=== PATIENT | female | born 1985 | race American Indian/Alaskan Native ===

== ENCOUNTER 2019-10-26 07:59 | Inpatient (IN) | payer MEDICAID ==
--- NOTE | 2019-10-26 08:39 | Emergency Department Report ---
ED General Adult HPI - General Chief complaint: Dyspnea/Respdistress Stated complaint: DALJIT Time Seen by Provider: 10/26/19 08:19 Source: patient Mode of arrival: Ambulatory Limitations: Other - History of Present Illness Initial comments: This is a 34-year-old female noncompliant with cold medicine. I am told that she was admitted to [facility] in July and ultimately signed out AMA. She has run out of her home oxygen. Her initial room air sat was 88 in the field I believe. She was placed on 2 L of supplemental O2. Her sats are ru nning between 91 and 96. She is here because she is been accumulating fluid progressively. She also complains of shortness of breath. She states that her legs have become very red and swollen and that the swelling has extended all the way to her chest but now has "gone down". Patient states she has a history of hypertension, CHF, diabetes. She does not monitor her sugar. She denies a history of chronic kidney disease. -: Gradual, week(s), month(s) Location: lower extremity (aching lower extremities) Radiation: non-radiation - Related Data Allergies Allergy/AdvReac Type Severity Reaction Status Date / Time No Known Allergies Allergy Unverified 10/26/19 08:25 ED Review of Systems ROS: Stated complaint: DALJIT Other details as noted in HPI Constitutional: fever (?). denies: chills Eyes: denies: eye pain, eye discharge, vision change ENT: denies: ear pain, throat pain Respiratory: shortness of breath. denies: cough, wheezing Cardiovascular: denies: chest pain, palpitations Endocrine: no symptoms reported Gastrointestinal: denies: abdominal pain, nausea, diarrhea Genitourinary: denies: urgency, dysuria, discharge Musculoskeletal: as per HPI, other (bilateral leg swelling and pain). denies: back pain, joint swelling, arthralgia Skin: denies: rash, lesions Neurological: denies: headache, weakness, paresthesias Psychiatric: denies: anxiety, depression Hematological/Lymphatic: denies: easy bleeding, easy bruising ED Past Medical Hx - Past Medical History Hx Congestive Heart Failure: Yes Hx Diabetes: Yes Additional medical history: CELLULITIS - Social History Smoking Status: Current Every Day Smoker Substance Use Type: Alcohol, Cocaine, Marijuana ED Physical Exam - General Limitations: Physical Limitation General appearance: alert, in no apparent distress, obese - Head Head exam: Present: atraumatic, normocephalic - Eye Eye exam: Present: normal appearance. Absent: scleral icterus - ENT ENT exam: Present: mucous membranes moist - Neck Neck exam: Present: normal inspection. Absent: tenderness, meningismus - Respiratory Respiratory exam: Present: normal lung sounds bilaterally. Absent: respiratory distress - Cardiovascular Cardiovascular Exam: Present: regular rate, normal rhythm. Absent: systolic murmur, diastolic murmur, rubs, gallop - GI/Abdominal GI/Abdominal exam: Present: soft, normal bowel sounds. Absent: distended, t enderness, guarding, rebound, rigid - Extremities Exam Extremities exam: Present: other (4+ bilateral leg edema extending onto the abdominal wall.) - Back Exam Back exam: Present: normal inspection - Neurological Exam Neurological exam: Present: alert, oriented X3, CN II-XII intact. Absent: motor sensory deficit - Psychiatric Psychiatric exam: Present: normal affect, normal mood - Skin Skin exam: Present: warm, dry, intact, other (erythema and warmth of both legs extending onto the abdomen.). Absent: rash ED Course Vital Signs 10/26/19 10/26/19 10/26/19 08:08 08:25 08:30 Temperature 98.1 F Pulse Rate 110 H 107 H Respiratory 24 24 Rate Blood Pressure 161/110 161/119 Blood Pressure [Right] O2 Sat by Pulse 69 L 91 Oximetry 10/26/19 10/26/19 10/26/19 08:47 08:51 09:01 Temperature Pulse Rate 106 H 106 H 99 H Respiratory 15 22 Rate Blood Pressure 161/119 181/132 Blood Pressure 161/119 [Right] O2 Sat by Pulse 95 85 Oximetry 10/26/19 10/26/19 10/26/19 10:07 10:09 10:21 Temperature Pulse Rate 96 H 97 H 93 H Respiratory 18 21 Rate Blood Pressure 202/134 165/119 Blood Pressure 202/134 [Right] O2 Sat by Pulse 93 Oximetry - Reevaluation(s) Reevaluation #1: Patient with sat of 91. Have ordered BiPAP. Have notified respiratory. They were unable to get a blood gas. Have ordered Lasix. Nurse informed. 10/26/19 09:36 Reevaluation #2: Blood pressure is increasing. Given additional labetalol. Will recheck the patient's status on BiPAP. Given a diuretic. Discussed with Dr. Fernando. Admit to her service IM. 10/26/19 09:58 Reevaluation #3: Finally obtain blood gas. Patient did well on BiPAP. Additional medicines given. 10/26/19 10:23 ED Medical Decision Making - Lab Data Result diagrams: 10/26/19 08:30 10/26/19 08:30 Laboratory Results - last 24 hr 10/26/19 10/26/19 10/26/19 08:30 08:30 08:30 WBC 7.1 RBC 5.30 H Hgb 14.1 Hct 44.5 H MCV 84 MCH 27 L MCHC 32 RDW 17.5 H Plt Count 224 Lymph % (Auto) 20.2 [place] % (Auto) 8.1 H Eos % (Auto) 0.4 Baso % (Auto) 0.8 Lymph # 1.4 [place] # 0.6 Eos # 0.0 Baso # 0.1 Seg Neutrophils % 70.5 H Seg Neutrophils # 5.0 PT 14.1 INR 1.08 APTT 30.8 Sodium 141 Potassium 4.7 Chloride 97.6 L Carbon Dioxide 26 Anion Gap 22 BUN 9 Creatinine 0.8 Estimated GFR > 60 BUN/Creatinine Ratio 11 Glucose 142 H POC Glucose Calcium 8.9 Magnesium 1.60 L Total Bilirubin 0.70 ALT 11 Alkaline Phosphatase 147 H Total Creatine Kinase CK-MB (CK-2) CK-MB (CK-2) Rel Index Troponin T NT-Pro-B Natriuret Pep Total Protein 7.1 Albumin 3.3 L Albumin/Globulin Ratio 0.9 10/26/19 10/26/19 08:30 08:46 WBC RBC Hgb Hct MCV MCH MCHC RDW Plt Count Lymph % (Auto) [place] % (Auto) Eos % (Auto) Baso % (Auto) Lymph # [place] # Eos # Baso # Seg Neutrophils % Seg Neutrophils # PT INR APTT Sodium Potassium Chloride Carbon Dioxide Anion Gap BUN Creatinine Estimated GFR BUN/Creatinine Ratio Glucose POC Glucose 129 H Calcium Magnesium Total Bilirubin ALT Alkaline Phosphatase Total Creatine Kinase 67 CK-MB (CK-2) 3.2 CK-MB (CK-2) Rel Index 4.7 H Troponin T < 0.010 NT-Pro-B Natriuret Pep 798.8 H Total Protein Albumin Albumin/Globulin Ratio Laboratory Results - last 24 hr 10/26/19 10/26/19 10/26/19 08:30 08:30 08:30 WBC 7.1 RBC 5.30 H Hgb 14.1 Hct 44.5 H MCV 84 MCH 27 L MCHC 32 RDW 17.5 H Plt Count 224 Lymph % (Auto) 20.2 [place] % (Auto) 8.1 H Eos % (Auto) 0.4 Baso % (Auto) 0.8 Lymph # 1.4 Thayer # 0.6 Eos # 0.0 Baso # 0.1 Seg Neutrophils % 70.5 H Seg Neutrophils # 5.0 PT 14.1 INR 1.08 APTT 30.8 Sodium 141 Potassium 4.7 Chloride 97.6 L Carbon Dioxide 26 Anion Gap 22 BUN 9 Creatinine 0.8 Estimated GFR > 60 BUN/Creatinine Ratio 11 Glucose 142 H POC Glucose Calcium 8.9 Magnesium 1.60 L Total Bilirubin 0.70 Direct Bilirubin 0.2 Indirect Bilirubin 0.5 AST 20 ALT 11 Alkaline Phosphatase 147 H Total Creatine Kinase CK-MB (CK-2) CK-MB (CK-2) Rel Index Troponin T NT-Pro-B Natriuret Pep Total Protein 7.1 Albumin 3.3 L Albumin/Globulin Ratio 0.9 10/26/19 10/26/19 08:30 08:46 WBC RBC Hgb Hct MCV MCH MCHC RDW Plt Count Lymph % (Auto) [place] % (Auto) Eos % (Auto) Baso % (Auto) Lymph # [place] # Eos # Baso # Seg Neutrophils % Seg Neutrophils # PT INR APTT Sodium Potassium Chloride Carbon Dioxide Anion Gap BUN Creatinine Estimated GFR BUN/Creatinine Ratio Glucose POC Glucose 129 H Calcium Magnesium Total Bilirubin Direct Bilirubin Indirect Bilirubin AST ALT Alkaline Phosphatase Total Creatine Kinase 67 CK-MB (CK-2) 3.2 CK-MB (CK-2) Rel Index 4.7 H Troponin T < 0.010 NT-Pro-B Natriuret Pep 798.8 H Total Protein Albumin Albumin/Globulin Ratio - EKG Data -: EKG Interpreted by Me EKG shows normal: sinus rhythm, axis, intervals, QRS complexes, ST-T waves Rate: normal - EKG Data Interpretation: no acute changes - Radiology Data Radiology results: image reviewed (consistent with CHF, pulmonary edema) Critical Care Time: Yes Critical care time in (mins) excluding proc time.: 80 Critical care attestation.: If time is entered above; I have spent that time in minutes in the direct care of this critically ill patient, excluding procedure time. ED Disposition Clinical Impression: Respiratory failure Qualifiers: Chronicity: acute Respiratory failure complication: hypoxia and hypercapnia Qualified Code(s): J96.01 - Acute respiratory failure with hypoxia; J96.02 - Acute respiratory failure with hypercapnia Pulmonary edema Qualifiers: Chronicity: acute Qualified Code(s): J81.0 - Acute pulmonary edema Congestive heart failure Qualifiers: Heart failure type: combined systolic and diastolic Heart failure chronicity: acute on chronic Qualified Code(s): I50.43 - Acute on chronic combined systolic (congestive) and diastolic (congestive) heart failure Cellulitis Qualifiers: Site of cellulitis: extremity Site of cellulitis of extremity: lower extremity Laterality: unspecified laterality Qualified Code(s): L03.119 - Cellulitis of unspecified part of limb Disposition: DC-09 OP ADMIT IP TO THIS HOSP Is pt being admited?: No Does the pt Need Aspirin: No Condition: Stable Instructions: Pulmonary Edema (ED) Time of Disposition: 10:31
[2019-10-26 08:58] LABS: Basophils # (Auto) 0.1 K/mm3 (0.0-0.1); Basophils % (Auto) 0.8 % (0.0-1.8); Eosinophils % (Auto) 0.4 % (0.0-4.3); Hematocrit 44.5 % (30.3-42.9); Hemoglobin 14.1 gm/dl (10.1-14.3); Lymphocytes # (Auto) 1.4 K/mm3 (1.2-5.4); Lymphocytes % (Auto) 20.2 % (13.4-35.0); Mean Corpuscular HGB Conc 32 % (30-34); Mean Corpuscular Volume 84 fl (79-97); Monocytes # (Auto) 0.6 K/mm3 (0.0-0.8); Monocytes % (Auto) 8.1 % (0.0-7.3); Platelet Count 224 K/mm3 (140-440); Red Cell Distribution Width 17.5 % (13.2-15.2)
[2019-10-26 09:08] LABS: INR 1.08 (0.87-1.13)
[2019-10-26 09:09] LABS: Partial Thromboplastin Time 30.8 Sec. (24.2-36.6)
[2019-10-26 09:19] LABS: Creatine Kinase MB 3.2 ng/mL (0.0-4.0)
[2019-10-26 09:20] LABS: Alanine Aminotransferase 11 units/L (7-56); Albumin 3.3 g/dL (3.9-5); BUN/Creatinine Ratio 11; Blood Urea Nitrogen 9 mg/dL (7-17); Calcium 8.9 mg/dL (8.4-10.2); Hemolysis Index 69
[2019-10-26 09:28] LABS: Bilirubin,Direct 0.2 mg/dL (0-0.2)
[2019-10-26] MEDS ORDERED: FUROSEMIDE 40 MG/4 ML INJ IV ONE (09:29)
--- NOTE | 2019-10-26 09:54 | Vascular Lab Report ---
DUPLEX DOPPLER BILATERAL LOWER EXTREMITY VEINS INDICATION: Shortness of Breath, R/O DVT FINDINGS: There is no thrombus within the deep veins of either lower extremity from the common femoral to the c correction veins. There is normal compression and augmentation on spectral analysis. IMPRESSION: No sonographic evidence for DVT in either lower extremity. Signer Name: Stephen Pena MD Signed: 10/26/2019 9:50 AM Workstation Name: [id number]
[2019-10-26] MEDS ORDERED: VANCOMYCIN PHARMACY TO DOSE IV SCH (10:00)
[2019-10-26] MEDS ORDERED: VANCOMYCIN 2,000 MG in SODIUM CHLORIDE 0.9% 500 ML 500 ML IV SCH (10:00)
--- NOTE | 2019-10-26 10:14 | XRay Report ---
CHEST 1 VIEW INDICATION: Dyspnea. COMPARISON: None FINDINGS: Support devices: None. Heart: Mild cardiomegaly. Lungs/Pleura: Mild pulmonary venous congestion. Trace pleural effusions could be present. No large pl eural effusion, consolidation or pneumothorax. Additional findings: None. IMPRESSION: Mild cardiomegaly and pulmonary venous congestion. Signer Name: Ari Ponce Jr, MD Signed: 10/26/2019 10:10 AM Workstation Name: [id number]
[2019-10-26 12:43] LABS: Bacteria,Urine 1+ /HPF (Negative); Bilirubin,Urine NEG (Negative); Blood,Urine SM (Negative); Color,Urine Colorless (Yellow); Protein,Urine <15 mg/dL mg/dL (Negative); Urobilinogen,Urine < 2.0 mg/dL (<2.0); WBC,Urine < 1.0 /HPF (0.0-6.0)
[2019-10-26 12:58] LABS: Amphetamine Screen,Urine PRESUMPTIVE NEGATIVE; Benzodiazepines Screen,Urine PRESUMPTIVE NEGATIVE; Cannabinoid Screen,Urine PRESUMPTIVE NEGATIVE; Methadone Screen,Urine PRESUMPTIVE NEGATIVE; Opiate Screen,Urine PRESUMPTIVE NEGATIVE
[2019-10-26 13:15] LABS: Cocaine Screen,Urine PRESUMPTIVE POSITIVE
[2019-10-26] MEDS ORDERED: ONDANSETRON 4 MG/2 ML INJ IV PRN (13:36)
[2019-10-26] MEDS ORDERED: ACETAMINOPHEN 325 MG TAB PO PRN (13:36)
--- NOTE | 2019-10-26 13:38 | History and Physical Report ---
History of Present Illness Date of examination: 10/26/19 Date of admission: 10/26/19 10:32 Chief complaint: SOB and LE redness and swelling History of present illness: This is a 34-year-old female with h/o CHF unknown EF, noncompliant with medicine, tobacco and cocaine abuse, on home o2 was admitted to [facility] in July and ultimately signed out AMA, RECENTLY run out of her home oxygen PRESENTED WITH WOESENING sob, B/L LE EDEMA AND REDNESS for last few day. She does endorse orthopnea, chest tightness. Her initial room air sat was 88 in the field PER REPORT. She was placed on 2 L of supplemental O2 AND BOUGHT TO THE ER. Her CXR showed pulmonary edema, and noted to have b/l LE cellulites. She is not on any meds now at home, cannot tell what was her EF. Her UDS was positive for cocaine and admits taking cocaine in last 24 hours as because she "was on pain." She was placed on empiric abx, obtained blood cx and called for admission for further stabilization and mx Review of Systems Constitutional: fever (?). denies: chills Eyes: denies: eye pain, eye discharge, vision change ENT: denies: ear pain, throat pain Respiratory: shortness of breath. denies: cough, wheezing Cardiovascular: denies: chest pain but admits chest tightness, -ve palpitations Endocrine: no symptoms reported Gastrointestinal: denies: abdominal pain, nausea, diarrhea Genitourinary: denies: urgency, dysuria, discharge Musculoskeletal: as per HPI, other (bilateral leg swelling and pain). denies: back pain, joint swelling, arthralgia Skin: denies: rash, lesions Neurological: denies: headache, weakness, paresthesias Psychiatric: denies: anxiety, depression Hematological/Lymphatic: denies: easy bleeding, easy bruising Past History Past Medical History: heart failure, hypertension, hyperlipidemia Past Surgical History: Other (tubal ligation) Social history: smoking, other (substance abuse) Family history: diabetes, hypertension Medications and Allergies Allergies Allergy/AdvReac Type Severity Reaction Status Date / Time No Known Allergies Allergy Unverified 10/26/19 08:25 Home Medications Medication Instructions Recorded Confirmed Last Taken Type No Known Home Medications [No 10/27/19 10/27/19 Unknown History Reported Home Medications] Active Meds: Active Medications Acetaminophen (Tylenol) 650 mg PO Q4H PRN PRN Reason: Pain MILD(1-3)/Fever >100.5/DODSON Acetaminophen/Hydrocodone Bitart ([place] 5/325) 2 each PO Q6H PRN PRN Reason: Pain, Moderate (4-6) Albuterol/Ipratropium (Duoneb *Not For Prn Use*) 1 ampul IH Q6HRT JOSE Docusate Sodium (Colace) 100 mg PO BID JOSE Hydralazine HCl (Apresoline) 5 mg IV Q30MIN PRN PRN Reason: Hypertension Vancomycin HCl 2,000 mg/ (Sodium Chloride) 540 mls @ 250 mls/hr IV Q12H JOSE Last Admin: 10/26/19 10:22 Dose: 250 mls/hr Documented by: Levofloxacin/Dextrose (Levaquin 750mg/150ml) 750 mg in 150 mls @ 100 mls/hr IV Q24HR JOSE; Protocol Ondansetron HCl (Zofran) 4 mg IV Q8H PRN PRN Reason: N/V unrelieved by Reglan Exam - Physical Exam Narrative exam: - General General appearance: alert, in no apparent distress, morbidly obese, lethargic - Head Head exam: Present: atraumatic, normocephalic - Eye Eye exam: Present: normal appearance. Absent: scleral icterus - ENT ENT exam: Present: mucous membranes moist - Neck Neck exam: Present: normal inspection. Absent: tenderness, meningismus - Respiratory Respiratory exam: Present: normal lung sounds bilaterally. Absent: respiratory distress - Cardiovascular Cardiovascular Exam: Present: regular rate, normal rhythm. Absent: systolic murmur, diastolic murmur, rubs, gallop - GI/Abdominal GI/Abdominal exam: Present: soft, normal bowel sounds. Absent: distended, tenderness, guarding, rebound, rigid - Extremities Exam Extremities exam: Present: other (4+ bilateral leg edema extending onto the abdominal wall.) - Back Exam Back exam: Present: normal inspection - Neurological Exam Neurological exam: Present: alert, oriented X3, CN II-XII intact. Absent: motor sensory deficit - Psychiatric Psychiatric exam: Present: normal affect, normal mood - Skin Skin exam: Present: warm, dry, intact, other (erythema and warmth of both legs extending onto the abdomen.). Absent: rash - Constitutional Vitals: Temp Pulse Resp BP Pulse Ox 98.1 F 93 H 21 165/119 93 10/26/19 08:25 10/26/19 10:21 10/26/19 10:21 10/26/19 10:21 10/26/19 10:21 Results - Labs CBC & Chem 7: 10/26/19 08:30 10/26/19 08:30 Labs: Abnormal lab results 10/26/19 10/26/19 10/26/19 Range/Units 08:30 08:30 08:30 RBC 5.30 H (3.65-5.03) M/mm3 Hct 44.5 H (30.3-42.9) % MCH 27 L (28-32) pg RDW 17.5 H (13.2-15.2) % [place] % (Auto) 8.1 H (0.0-7.3) % Seg Neutrophils % 70.5 H (40.0-70.0) % POC ABG pH (7.35-7.45) POC ABG pO2 (80-105) Chloride 97.6 L (98-107) mmol/L Glucose 142 H (65-100) mg/dL POC Glucose (70-105) Magnesium 1.60 L (1.7-2.3) mg/dL Alkaline Phosphatase 147 H (35-129) units/L CK-MB (CK-2) Rel Index 4.7 H (0-4) NT-Pro-B Natriuret Pep 798.8 H (0-450) pg/mL Albumin 3.3 L (3.9-5) g/dL 10/26/19 10/26/19 Range/Units 08:46 10:14 RBC (3.65-5.03) M/mm3 Hct (30.3-42.9) % MCH (28-32) pg RDW (13.2-15.2) % [place] % (Auto) (0.0-7.3) % Seg Neutrophils % (40.0-70.0) % POC ABG pH 7.280 L (7.35-7.45) POC ABG pO2 75 L (80-105) Chloride (98-107) mmol/L Glucose (65-100) mg/dL POC Glucose 129 H (70-105) Magnesium (1.7-2.3) mg/dL Alkaline Phosphatase (35-129) units/L CK-MB (CK-2) Rel Index (0-4) NT-Pro-B Natriuret Pep (0-450) pg/mL Albumin (3.9-5) g/dL Assessment and Plan Acute on chronic hypoxic respiratory failure Acute CHF exacerbation - likely systolic dysfunction - cont iv lasix, ins/os monitoring - get medical record from [facility] [place] B/L LE cellulitis - cont empiric abx, follow cx Hypomagnesemia, replete Cocaine abuse, counsellled for cessation Morbid obesity, wt reduction diet and exercise as tolerated as outpt tobacco abuse, counseled for cessation, nicotine patch if needed Possible sleep apnea, need sleep study outpt, CPAP at bedtime Dvt Px, lovenox Radiological data; CXR: pulmonary venous congestion LE venous doppler - no DVT
[2019-10-26] MEDS ORDERED: IPRATROPIUM/ALBUTEROL SULFATE 3 ML AMPUL.NEB IH ONE ×2 (13:54→20:05)
[2019-10-26] MEDS: IPRATROPIUM/ALBUTEROL SULFATE 3 ML AMPUL.NEB IH SCH ×2 (14:00→20:32)
[2019-10-26] MEDS ORDERED: FUROSEMIDE 40 MG/4 ML INJ ONE (17:50)
[2019-10-26] MEDS: FUROSEMIDE 40 MG/4 ML INJ IV SCH (18:37)
[2019-10-27] MEDS ORDERED: HYDROcodone/ACETAMINOPHEN 5-325 MG TAB ONE ×3 (01:29→10:28)
[2019-10-27] MEDS ORDERED: IPRATROPIUM/ALBUTEROL SULFATE 3 ML AMPUL.NEB IH ONE (03:18)
[2019-10-27] MEDS: IPRATROPIUM/ALBUTEROL SULFATE 3 ML AMPUL.NEB IH SCH ×5 (03:27→20:35)
[2019-10-27] MEDS ORDERED: FUROSEMIDE 40 MG/4 ML INJ ONE (08:15)
[2019-10-27] MEDS: FUROSEMIDE 40 MG/4 ML INJ IV SCH (08:16)
[2019-10-27] MEDS ORDERED: FUROSEMIDE 40 MG/4 ML INJ IV SCH (10:00)
[2019-10-27] MEDS ORDERED: MAGNESIUM SULFATE 2 GM/50 ML BAG IV ONE ×2 (10:00→10:21)
[2019-10-27] MEDS ORDERED: cefTRIAXone/NS 1 GM/50 ML 1 GM/50 ML BAG IV SCH (10:00)
[2019-10-27] MEDS ORDERED: DOCUSATE SODIUM 100 MG CAP ONE (10:21)
[2019-10-27] MEDS: HYDROcodone/ACETAMINOPHEN 5-325 MG TAB PO PRN ×2 (10:24→17:43)
[2019-10-27] MEDS: DOCUSATE SODIUM 100 MG CAP PO SCH ×2 (10:27→22:14)
[2019-10-27] MEDS: cefTRIAXone/NS 2 GM/100 ML 2 GM/100 ML BAG IV SCH (13:01)
--- NOTE | 2019-10-27 14:05 | Progress Note ---
Assessment and Plan Acute on chronic hypoxic respiratory failure Acute CHF exacerbation - likely systolic dysfunction - cont iv lasix, ins/os monitoring - get medical record from [facility] [place] - will order 2d echo and consult cardiology B/L LE cellulitis - cont empiric abx, follow cx Hypomagnesemia, repleted Cocaine abuse, counsellled for cessation Morbid obesity, wt reduction diet and exercise as tolerated as outpt tobacco abuse, counseled for cessation, nicotine patch if needed Possible sleep apnea, need sleep study outpt, CPAP at bedtime Dvt Px, lovenox Radiological data; CXR: pulmonary venous congestion LE venous doppler - no DVT Subjective Date of service: 10/27/19 Interval history: Patient seen and examined c/o SOB on exertion but improved than yesterday Swelling has come down but still has redness to her legs denies chest pain Objective - Exam Narrative Exam: - General General appearance: alert, in no apparent distress, morbidly obese, lethargic - Head Head exam: Present: atraumatic, normocephalic - Eye Eye exam: Present: normal appearance. Absent: scleral icterus - ENT ENT exam: Present: mucous membranes moist - Neck Neck exam: Present: normal inspection. Absent: tenderness, meningismus - Respiratory Respiratory exam: Present: normal lung sounds bilaterally. Absent: respiratory distress - Cardiovascular Cardiovascular Exam: Present: regular rate, normal rhythm. Absent: systolic murmur, diastolic murmur, rubs, gallop - GI/Abdominal GI/Abdominal exam: Present: soft, normal bowel sounds. Absent: distended, tenderness, guarding, rebound, rigid - Extremities Exam Extremities exam: Present: other (4+ bilateral leg edema extending onto the abdominal wall.) - Back Exam Back exam: Present: normal inspection - Neurological Exam Neurological exam: Present: alert, oriented X3, CN II-XII intact. Absent: motor sensory deficit - Psychiatric Psychiatric exam: Present: normal affect, normal mood - Skin Skin exam: Present: warm, dry, intact, other (erythema and warmth of both legs extending onto the abdomen.). Absent: rash - Constitutional Vitals: Vital Signs - 12hr 10/27/19 10/27/19 10/27/19 03:01 04:01 05:01 Temperature Pulse Rate Pulse Rate [ Posterior Bilateral Throughout] Respiratory Rate Respiratory Rate [Posterior Bilateral Throughout] Blood Pressure 162/102 162/102 162/102 Blood Pressure [Right] O2 Sat by Pulse 95 93 94 Oximetry 10/27/19 10/27/19 10/27/19 06:01 07:01 08:00 Temperature Pulse Rate 101 H Pulse Rate [ Posterior Bilateral Throughout] Respiratory 20 Rate Respiratory Rate [Posterior Bilateral Throughout] Blood Pressure 162/102 162/102 144/105 Blood Pressure [Right] O2 Sat by Pulse 79 L 93 Oximetry 10/27/19 10/27/19 10/27/19 08:52 09:01 10:01 Temperature Pulse Rate 114 H 106 H Pulse Rate [ 85 Posterior Bilateral Throughout] Respiratory 26 H 18 Rate Respiratory 20 Rate [Posterior Bilateral Throughout] Blood Pressure 144/105 144/105 Blood Pressure [Right] O2 Sat by Pulse 93 91 Oximetry 10/27/19 10/27/19 10/27/19 10:34 11:01 12:53 Temperature 98.3 F Pulse Rate 99 H 107 H 98 H Pulse Rate [ Posterior Bilateral Throughout] Respiratory 22 31 H 22 Rate Respiratory Rate [Posterior Bilateral Throughout] Blood Pressure 138/106 132/85 Blood Pressure 127/71 [Right] O2 Sat by Pulse 92 91 91 Oximetry - Labs CBC & Chem 7: 10/26/19 08:30 10/26/19 08:30
[2019-10-27] MEDS: diphenhydrAMINE 25 MG CAP PO PRN (18:29)
[2019-10-27] MEDS: VANCOMYCIN 2,000 MG in SODIUM CHLORIDE 0.9% 500 ML 500 ML IV SCH (18:30)
[2019-10-27] MEDS: ENOXAPARIN 40 MG/0.4 ML INJ SUB-Q SCH (22:10)
[2019-10-28] MEDS: IPRATROPIUM/ALBUTEROL SULFATE 3 ML AMPUL.NEB IH SCH ×4 (01:54→21:35)
[2019-10-28] MEDS: hydrALAZINE 20 MG/1 ML INJ IV PRN (05:16)
[2019-10-28] MEDS: FUROSEMIDE 40 MG/4 ML INJ IV SCH (05:16)
[2019-10-28] MEDS: VANCOMYCIN 2,000 MG in SODIUM CHLORIDE 0.9% 500 ML 500 ML IV SCH (06:11)
[2019-10-28] MEDS: HYDROcodone/ACETAMINOPHEN 5-325 MG TAB PO PRN ×3 (06:25→21:49)
--- NOTE | 2019-10-28 08:45 | Consultation ---
History of Present Illness Consult date: 10/28/19 Consult reason: congestive heart failure History of present illness: Impression Acute hypoxia Obesity hypoventilation syndrome CHF of uncertain etiology HTN Morbid Obesity Volume overload, multifactorial Plan IV diuresis, NTproBNP elevated Echo to evalaute EF CXR shows cardiomegaly, echo to further eval Past History Past Medical History: heart failure, hypertension Medications and Allergies Allergies Allergy/AdvReac Type Severity Reaction Status Date / Time No Known Allergies Allergy Unverified 10/26/19 08:25 Home Medications Medication Instructions Recorded Confirmed Last Taken Type No Known Home Medications [No 10/27/19 10/27/19 Unknown History Reported Home Medications] Active Meds: Active Medications Acetaminophen (Tylenol) 650 mg PO Q4H PRN PRN Reason: Pain MILD(1-3)/Fever >100.5/DODSON Acetaminophen/Hydrocodone Bitart ([place] 5/325) 2 each PO Q6H PRN PRN Reason: Pain, Moderate (4-6) Last Admin: 10/28/19 06:25 Dose: 2 each Documented by: Albuterol/Ipratropium (Duoneb *Not For Prn Use*) 1 ampul IH Q6HRT [facility] Last Admin: 10/28/19 08:13 Dose: 1 ampul Documented by: Diphenhydramine HCl (Benadryl) 25 mg PO Q6H PRN PRN Reason: Itching Last Admin: 10/27/19 18:29 Dose: 25 mg Documented by: Docusate Sodium (Colace) 100 mg PO BID [facility] Last Admin: 10/27/19 22:14 Dose: Not Given Documented by: Enoxaparin Sodium (Enoxaparin) 40 mg SUB-Q QDAY@2200 [facility] Last Admin: 10/27/19 22:10 Dose: 40 mg Documented by: Furosemide (Lasix) 40 mg IV DAILY@0600 [facility] Last Admin: 10/28/19 05:16 Dose: 40 mg Documented by: Hydralazine HCl (Apresoline) 5 mg IV Q30MIN PRN PRN Reason: HTN SYS>180 AND HRADY>100 Last Admin: 10/28/19 05:16 Dose: 5 mg Documented by: Hydroxyzine Pamoate (Vistaril) 50 mg PO Q6H PRN PRN Reason: Anxiety Ceftriaxone Sodium (Rocephin/Ns 2 Gm/100 Ml) 2 gm in 100 mls @ 200 mls/hr IV Q24HR [facility] Last Admin: 10/27/19 13:01 Dose: 200 mls/hr Documented by: Vancomycin HCl 2,000 mg/ (Sodium Chloride) 540 mls @ 250 mls/hr IV Q12H [facility] Last Admin: 10/28/19 06:11 Dose: Not Given Documented by: Ondansetron HCl (Zofran) 4 mg IV Q8H PRN PRN Reason: N/V unrelieved by Reglan Review of Systems All systems: negative (dyspnea, ortthopnea, pnd ,edema) Physical Examination Vital Signs Pulse Ox 69 L 10/26/19 08:08 General appearance: no acute distress Neck: Positive: neck supple Cardiac: Positive: Reg Rate and Rhythm, S1/S2 Lungs: Positive: Normal Exam Neuro: Positive: Grossly Intact Abdomen: Positive: Soft Results 10/26/19 08:30 10/26/19 08:30
[2019-10-28] MEDS: cefTRIAXone/NS 2 GM/100 ML 2 GM/100 ML BAG IV SCH (09:47)
[2019-10-28] MEDS: DOCUSATE SODIUM 100 MG CAP PO SCH ×2 (09:47→21:51)
[2019-10-28] MEDS ORDERED: FLU VACC QUAD 2019-20 (3 YR UP)/PF 60 MCG/0.5 ML SYRINGE IM ONE (12:00)
--- NOTE | 2019-10-28 16:03 | Progress Note ---
Assessment and Plan Acute on chronic hypoxic respiratory failure Acute CHF exacerbation - likely systolic dysfunction - cont iv lasix, ins/os monitoring - get medical record from [facility] [place] - not received yet - ordered 2d echo - pending - consulted cardiology B/L LE cellulitis - cont empiric abx, blood cx negative Hypomagnesemia, repleted Cocaine abuse, counsellled for cessation Morbid obesity, wt reduction diet and exercise as tolerated as outpt tobacco abuse, counseled for cessation, nicotine patch if needed Possible sleep apnea, need sleep study outpt, CPAP at bedtime Dvt Px, lovenox Radiological data; CXR: pulmonary venous congestion LE venous doppler - no DVT Subjective Date of service: 10/28/19 Interval history: Patient seen and examined c/o SOB on exertion but improved Swelling has come down but still has redness and edema to her legs denies chest pain Objective - Exam Narrative Exam: - General General appearance: alert, in no apparent distress, morbidly obese, lethargic - Head Head exam: Present: atraumatic, normocephalic - Eye Eye exam: Present: normal appearance. Absent: scleral icterus - ENT ENT exam: Present: mucous membranes moist - Neck Neck exam: Present: normal inspection. Absent: tenderness, meningismus - Respiratory Respiratory exam: Present: normal lung sounds bilaterally. Absent: respiratory distress - Cardiovascular Cardiovascular Exam: Present: regular rate, normal rhythm. Absent: systolic murmur, diastolic murmur, rubs, gallop - GI/Abdominal GI/Abdominal exam: Present: soft, normal bowel sounds. Absent: distended, te nderness, guarding, rebound, rigid - Extremities Exam Extremities exam: Present: other (2 + bilateral leg edema extending onto the abdominal wall.) - Back Exam Back exam: Present: normal inspection - Neurological Exam Neurological exam: Present: alert, oriented X3, CN II-XII intact. Absent: motor sensory deficit - Psychiatric Psychiatric exam: Present: normal affect, normal mood - Skin Skin exam: Present: warm, dry, intact, other (erythema and warmth of both legs extending onto the abdomen.). Absent: rash - Constitutional Vitals: Vital Signs - 12hr 10/28/19 10/28/19 10/28/19 04:25 08:13 08:33 Temperature 98.0 F 98.3 F Pulse Rate 107 H 104 H Pulse Rate [ 94 H Anterior Bilateral Throughout] Pulse Rate [ Apical] Respiratory 18 18 Rate Respiratory 20 Rate [Anterior Bilateral Throughout] Blood Pressure 182/100 103/60 O2 Sat by Pulse 89 92 93 Oximetry 10/28/19 10/28/19 10/28/19 10:00 10:13 13:21 Temperature Pulse Rate 109 H Pulse Rate [ 96 H Anterior Bilateral Throughout] Pulse Rate [ 109 H Apical] Respiratory 20 Rate Respiratory 20 Rate [Anterior Bilateral Throughout] Blood Pressure O2 Sat by Pulse 91 Oximetry - Labs CBC & Chem 7: 10/26/19 08:30 10/26/19 08:30
[2019-10-28] MEDS: diphenhydrAMINE 25 MG CAP PO PRN (17:57)
[2019-10-28] MEDS: ENOXAPARIN 40 MG/0.4 ML INJ SUB-Q SCH (21:51)
[2019-10-29] MEDS: IPRATROPIUM/ALBUTEROL SULFATE 3 ML AMPUL.NEB IH SCH ×4 (03:22→21:14)
[2019-10-29] MEDS: FUROSEMIDE 40 MG/4 ML INJ IV SCH (05:41)
[2019-10-29] MEDS: HYDROcodone/ACETAMINOPHEN 5-325 MG TAB PO PRN ×2 (05:44→21:30)
[2019-10-29] MEDS: cefTRIAXone/NS 2 GM/100 ML 2 GM/100 ML BAG IV SCH (10:57)
[2019-10-29] MEDS: DOCUSATE SODIUM 100 MG CAP PO SCH ×2 (10:57→21:26)
--- NOTE | 2019-10-29 14:58 | Progress Note ---
Assessment and Plan Acute on chronic hypoxic respiratory failure Acute CHF exacerbation - likely systolic dysfunction - cont iv lasix, ins/os monitoring - get medical record from [facility] [place] - not received yet - ordered 2d echo - pending - consulted cardiology B/L LE cellulitis - cont empiric abx, blood cx negative Hypomagnesemia, repleted Cocaine abuse, counsellled for cessation Morbid obesity, wt reduction diet and exercise as tolerated as outpt tobacco abuse, counseled for cessation, nicotine patch if needed Possible sleep apnea, need sleep study outpt, CPAP at bedtime Dvt Px, lovenox Radiological data; CXR: pulmonary venous congestion LE venous doppler - no DVT Subjective Date of service: 10/29/19 Interval history: Patient seen and examined c/o SOB on exertion but improved Swelling has come down but still has redness and edema to her legs denies chest pain Objective - Exam Narrative Exam: - General General appearance: alert, in no apparent distress, morbidly obese, lethargic - Head Head exam: Present: atraumatic, normocephalic - Eye Eye exam: Present: normal appearance. Absent: scleral icterus - ENT ENT exam: Present: mucous membranes moist - Neck Neck exam: Present: normal inspection. Absent: tenderness, meningismus - Respiratory Respiratory exam: Present: normal lung sounds bilaterally. Absent: respiratory distress - Cardiovascular Cardiovascular Exam: Present: regular rate, normal rhythm. Absent: systolic murmur, diastolic murmur, rubs, gallop - GI/Abdominal GI/Abdominal exam: Present: soft, normal bowel sounds. Absent: distended, te nderness, guarding, rebound, rigid - Extremities Exam Extremities exam: Present: other (2 + bilateral leg edema extending onto the abdominal wall.) - Back Exam Back exam: Present: normal inspection - Neurological Exam Neurological exam: Present: alert, oriented X3, CN II-XII intact. Absent: motor sensory deficit - Psychiatric Psychiatric exam: Present: normal affect, normal mood - Skin Skin exam: Present: warm, dry, intact, other (erythema and warmth of both legs extending onto the abdomen.). Absent: rash - Constitutional Vitals: Vital Signs - 12hr 10/29/19 10/29/19 10/29/19 03:23 04:07 04:11 Temperature 98.5 F 98.4 F Pulse Rate 109 H 79 Pulse Rate [ 93 H Anterior Bilateral Throughout] Pulse Rate [ 18 L Posterior Bilateral Throughout] Respiratory 18 18 Rate Respiratory 18 Rate [Anterior Bilateral Throughout] Respiratory Rate [Posterior Bilateral Throughout] Blood Pressure 154/92 119/80 O2 Sat by Pulse 67 L 99 Oximetry 10/29/19 10/29/19 10/29/19 05:44 08:00 08:52 Temperature Pulse Rate Pulse Rate [ 78 Anterior Bilateral Throughout] Pulse Rate [ Posterior Bilateral Throughout] Respiratory 22 Rate Respiratory 18 Rate [Anterior Bilateral Throughout] Respiratory Rate [Posterior Bilateral Throughout] Blood Pressure O2 Sat by Pulse 99 Oximetry 10/29/19 10/29/19 10/29/19 10:00 13:08 13:56 Temperature Pulse Rate 113 H Pulse Rate [ 115 H Anterior Bilateral Throughout] Pulse Rate [ 112 H Posterior Bilateral Throughout] Respiratory 20 Rate Respiratory 18 Rate [Anterior Bilateral Throughout] Respiratory 18 Rate [Posterior Bilateral Throughout] Blood Pressure O2 Sat by Pulse 96 Oximetry - Labs CBC & Chem 7: 10/26/19 08:30 10/30/19 07:44
[2019-10-29 16:59] LABS: BUN/Creatinine Ratio 10; Blood Urea Nitrogen 8 mg/dL (7-17); Calcium 8.7 mg/dL (8.4-10.2); Hemolysis Index 14
--- NOTE | 2019-10-29 18:39 | Progress Note ---
Subjective Date of service: 10/29/19 Interval history: Impression Acute hypoxia Obesity hypoventilation syndrome CHF , RV dysfunction HTN Morbid Obesity Volume overload, multifactorial Plan IV diuresis, NTproBNP elevated Echo shows preserved EF, RV dilated with dysfunction will need compliance with CPAP Needs evaluation for home 02, she has oxygen at home, needs updated Objective Vital Signs Temp Pulse Pulse Pulse Resp Resp Resp 10/29/19 13:56 115 H 112 H 18 18 10/29/19 13:08 20 10/29/19 10:00 113 H 10/29/19 09:03 91 H 10/29/19 08:52 10/29/19 08:00 78 18 10/29/19 05:44 22 10/29/19 04:11 98.4 F 79 18 10/29/19 04:07 98.5 F 109 H 18 10/29/19 03:23 93 H 18 L 18 10/29/19 02:02 20 10/29/19 00:17 98.2 F 100 H 18 10/28/19 21:49 20 10/28/19 21:44 18 10/28/19 21:38 10/28/19 21:37 102 H 98 H 20 18 10/28/19 20:28 102 H 10/28/19 19:29 98.1 F 109 H 18 BP Pulse Ox 10/29/19 13:56 10/29/19 13:08 96 10/29/19 10:00 10/29/19 09:03 157/87 92 10/29/19 08:52 99 10/29/19 08:00 10/29/19 05:44 10/29/19 04:11 119/80 99 10/29/19 04:07 154/92 67 L 10/29/19 03:23 10/29/19 02:02 10/29/19 00:17 158/103 93 10/28/19 21:49 10/28/19 21:44 165/101 10/28/19 21:38 95 10/28/19 21:37 10/28/19 20:28 10/28/19 19:29 155/110 85 - Physical Examination General: Appears Well, No Apparent Distress HEENT: Positive: PERRL, EOMI Neck: Positive: neck supple Cardiac: Positive: Reg Rate and Rhythm, S1/S2 Lungs: Positive: Normal Exam Neuro: Positive: Grossly Intact Abdomen: Positive: Soft - Labs and Meds Comprehensive Metabolic Panel 10/29/19 Range/Units 16:20 Sodium 138 (137-145) mmol/L Potassium 4.4 (3.6-5.0) mmol/L Chloride 91.3 L (98-107) mmol/L Carbon Dioxide 34 H D (22-30) mmol/L BUN 8 (7-17) mg/dL Creatinine 0.8 (0.7-1.2) mg/dL Glucose 205 H (65-100) mg/dL Calcium 8.7 (8.4-10.2) mg/dL
[2019-10-29] MEDS: ENOXAPARIN 40 MG/0.4 ML INJ SUB-Q SCH (21:30)
[2019-10-29] MEDS: hydrALAZINE 20 MG/1 ML INJ IV PRN (23:48)
[2019-10-30] MEDS: IPRATROPIUM/ALBUTEROL SULFATE 3 ML AMPUL.NEB IH SCH ×3 (02:29→14:53)
[2019-10-30] MEDS: HYDROcodone/ACETAMINOPHEN 5-325 MG TAB PO PRN (03:50)
[2019-10-30] MEDS: FUROSEMIDE 40 MG/4 ML INJ IV SCH (05:15)
[2019-10-30] MEDS ORDERED: cloNIDine 0.1 MG TAB PO ONE (06:05)
[2019-10-30 08:48] LABS: BUN/Creatinine Ratio 11; Blood Urea Nitrogen 8 mg/dL (7-17); Calcium 9.2 mg/dL (8.4-10.2); Hemolysis Index 0
--- NOTE | 2019-10-30 09:59 | Progress Note ---
Assessment and Plan Acute hypoxic respiratory failure Sleep apnea HTN Morbid Obesity Substance abuse Tobacco abuse An echocardiogram this admission reports dilated right heart chambers with moderate pulmonary HTN, RVSP 58 mmHg. Normal LV systolic function, EF 55-60%. Subjective Date of service: 10/30/19 Interval history: Patient reports her breathing is better. She denies chest pain. Objective Vital Signs Temp Pulse Pulse Pulse Resp Resp Resp 10/30/19 04:46 97.8 F 94 H 20 10/30/19 03:50 20 10/30/19 02:41 94 H 18 10/30/19 02:30 88 19 10/29/19 23:38 98.3 F 96 H 20 10/29/19 23:03 20 10/29/19 21:30 20 10/29/19 21:14 104 H 20 10/29/19 20:05 109 H 10/29/19 16:59 98.5 F 107 H 18 10/29/19 13:56 115 H 112 H 18 18 10/29/19 13:08 20 10/29/19 10:00 113 H BP BP Pulse Ox 10/30/19 04:46 150/118 90 10/30/19 03:50 10/30/19 02:41 10/30/19 02:30 10/29/19 23:38 158/108 94 10/29/19 23:03 96 10/29/19 21:30 10/29/19 21:14 93 10/29/19 20:05 10/29/19 16:59 159/85 85 10/29/19 13:56 10/29/19 13:08 96 10/29/19 10:00 - Physical Examination General: No Apparent Distress, Other (obese) HEENT: Positive: PERRL Neck: Positive: neck supple Cardiac: Positive: Reg Rate and Rhythm Lungs: Positive: Decreased Breath Sounds Neuro: Positive: Grossly Intact Abdomen: Positive: Soft - Labs and Meds Comprehensive Metabolic Panel 10/29/19 10/30/19 Range/Units 16:20 07:44 Sodium 138 141 (137-145) mmol/L Potassium 4.4 4.4 (3.6-5.0) mmol/L Chloride 91.3 L 90.3 L (98-107) mmol/L Carbon Dioxide 34 H D 35 H (22-30) mmol/L BUN 8 8 (7-17) mg/dL Creatinine 0.8 0.7 (0.7-1.2) mg/dL Glucose 205 H 176 H (65-100) mg/dL Calcium 8.7 9.2 (8.4-10.2) mg/dL
[2019-10-30] MEDS ORDERED: ASPIRIN 81 MG TAB CHEW PO SCH (10:00)
[2019-10-30] MEDS ORDERED: LISINOPRIL 5 MG TAB PO SCH (10:00)
[2019-10-30] MEDS ORDERED: carvediloL 6.25 MG TAB PO SCH (10:00)
[2019-10-30] MEDS: DOCUSATE SODIUM 100 MG CAP PO SCH (10:27)
[2019-10-30] MEDS: cefTRIAXone/NS 2 GM/100 ML 2 GM/100 ML BAG IV SCH (10:27)
[2019-10-30 14:20] VITALS: BP 151/118
--- NOTE | 2019-10-30 15:06 | Discharge Summary ---
Providers - Providers Date of Admission: 10/26/19 10:32 Date of discharge: 10/30/19 Attending physician: AMANDA GONZALEZ 10/27/19 16:55 Consult to Physician [CONS] Routine Comment: Consulting Provider: HELENE FRY Physician Instructions: Reason For Exam: CHF exacerbation Primary care physician: [employer] Hospitalization Condition: Stable Hospital course: Discharge diagnosis: Acute on chronic hypoxic respiratory failure Acute on chronic CHF exacerbation with preserved EF - likely diastolic dysfunction - acute on chronic - cont iv lasix, ins/os monitoring - get medical record from [facility] - not received yet - ordered 2d echo - pending - consulted cardiology B/L LE cellulitis - cont empiric abx, blood cx negative Hypomagnesemia, repleted Cocaine abuse, counsellled for cessation Morbid obesity, wt reduction diet and exercise as tolerated as outpt tobacco abuse, counseled for cessation, nicotine patch if needed Possible sleep apnea, need sleep study outpt, CPAP at bedtime Dvt Px, lovenox Radiological data; CXR: pulmonary venous congestion LE venous doppler - no DVT Disposition: TO HOME OR SELFCARE Time spent for discharge: 34 minutes Core Measure Documentation - Palliative Care Palliative Care/ Comfort Measures: Not Applicable - Core Measures Any of the following diagnoses?: history only Exam - Physical Exam Narrative exam: - General General appearance: alert, in no apparent distress, morbidly obese, lethargic - Head Head exam: Present: atraumatic, normocephalic - Eye Eye exam: Present: normal appearance. Absent: scleral icterus - ENT ENT exam: Present: mucous membranes moist - Neck Neck exam: Present: normal inspection. Absent: tenderness, meningismus - Respiratory Respiratory exam: Present: normal lung sounds bilaterally. Absent: respiratory distress - Cardiovascular Cardiovascular Exam: Present: regular rate, normal rhythm. Absent: systolic murmur, diastolic murmur, rubs, gallop - GI/Abdominal GI/Abdominal exam: Present: soft, normal bowel sounds. Absent: distended, tenderness, guarding, rebound, rigid - Extremities Exam Extremities exam: Present: other (2 + bilateral leg edema extending onto the abdominal wall.) - Back Exam Back exam: Present: normal inspection - Neurological Exam Neurological exam: Present: alert, oriented X3, CN II-XII intact. Absent: motor sensory deficit - Psychiatric Psychiatric exam: Present: normal affect, normal mood - Skin Skin exam: Present: warm, dry, intact, other (erythema and warmth of both legs extending onto the abdomen.). Absent: rash - Constitutional Vitals: Temp Pulse Resp BP Pulse Ox 97.8 F 87 20 151/118 90 10/30/19 04:46 10/30/19 12:42 10/30/19 08:00 10/30/19 12:42 10/30/19 12:42 Plan Activity: advance as tolerated Weight Bearing Status: Weight Bear as Tolerated Diet: low fat, low salt Special Instructions: record daily weights, home oxygen via (2 L n/c) Durable Medical Equipment Needed Upon Discharge: Bedside Commode Follow up with: PRIMARY MD GIANNI [Primary Care Provider] - 3-5 Days HELENE FRY MD [Staff Physician] - 7 Days Prescriptions: AtorvaSTATin [Lipitor] 20 mg PO QHS #30 tablet Aspirin [Aspirin BABY CHEW TAB] 81 mg PO QDAY #30 tab.chew carvediloL [Coreg] 6.25 mg PO BID #60 tablet Furosemide [Lasix TAB] 40 mg PO QDAY #30 tablet lisinopriL [Zestril TAB] 5 mg PO QDAY #30 tablet
== END 2019-10-30 19:05 | disposition home or self-care (01) | DRG 189 ==
LOC: ED 07:59 → IMCU 10:32 → 4A 10-27 10:00
PROVIDERS: ADMIT Internal Medicine; ATTEND Internal Medicine
PROC: 4A033R1 Measurement of Arterial Saturation, Peripheral, Percutaneous Approach (ICD-10-PCS; principal; 2019-10-26)
PROC: 5A09357 Assistance with Respiratory Ventilation, Less than 24 Consecutive Hours, Continuous Positive Airway Pressure (ICD-10-PCS; 2019-10-26)
DX: J96.21 Acute and chronic respiratory failure with hypoxia (principal); I11.0 Hypertensive heart disease with heart failure; J96.22 Acute and chronic respiratory failure with hypercapnia; L03.115 Cellulitis of right lower limb; L03.116 Cellulitis of left lower limb; Z91.14 Patient's other noncompliance with medication regimen; E11.9 Type 2 diabetes mellitus without complications; F17.200 Nicotine dependence, unspecified, uncomplicated; F12.90 Cannabis use, unspecified, uncomplicated; E83.42 Hypomagnesemia; I50.43 Acute on chronic combined systolic (congestive) and diastolic (congestive) heart failure; E66.2 Morbid (severe) obesity with alveolar hypoventilation; F14.10 Cocaine abuse, uncomplicated; Z83.3 Family history of diabetes mellitus; Z82.49 Family history of ischemic heart disease and other diseases of the circulatory system; Z98.51 Tubal ligation status; Z68.42 Body mass index [BMI] 45.0-49.9, adult; Z71.6 Tobacco abuse counseling; Z71.51 Drug abuse counseling and surveillance of drug abuser; Z71.3 Dietary counseling and surveillance; Z79.84 Long term (current) use of oral hypoglycemic drugs
CPT/HCPCS: 36415; 71045; 80048; 80076; 80307; 81001; 82140; 82550; 82553; 82803; 82962; 83735; 83880; 84484; 84703; 85025; 85610; 85730; 87040; 87086; 90686; 93005; 93010; 93306; 93970; 94640; 94760; 99292; G0378; J0360; J0696; J1650; J1940; J1956; J3370; J3475; J7040

== ENCOUNTER 2020-01-19 11:36 | Inpatient (IN) | payer MEDICAID, OTHER ==
--- NOTE | 2020-01-19 12:46 | XRay Report ---
CHEST 1 VIEW 01/19/2020 11:39 AM INDICATION / CLINICAL INFORMATION: Dyspnea. COMPARISON: Chest x-ray on 10/26/2019. FINDINGS: SUPPORT DEVICES: None. HEART / MEDIASTINUM: Stable mild cardiomegaly. LUNGS / PLEURA: No significant pulmonary or pleural abnormality. No pneumothorax. ADDITIONAL FINDINGS: No significant additional findings. IMPRESSION: 1. No acute findings. Stable mild cardiomegaly. Signer Name: Stephen Pena MD Signed: 01/19/2020 12:42 PM Workstation Name: [id number]
[2020-01-19 12:49] LABS: Basophils # (Auto) 0.1 K/mm3 (0.0-0.1); Basophils % (Auto) 0.6 % (0.0-1.8); Eosinophils % (Auto) 0.2 % (0.0-4.3); Lymphocytes # (Auto) 1.1 K/mm3 (1.2-5.4); Lymphocytes % (Auto) 13.4 % (13.4-35.0); Mean Corpuscular HGB Conc 30 % (30-34); Mean Corpuscular Volume 83 fl (79-97); Monocytes # (Auto) 1.2 K/mm3 (0.0-0.8); Monocytes % (Auto) 13.8 % (0.0-7.3); Platelet Count 197 K/mm3 (140-440); Red Blood Count 5.98 M/mm3 (3.65-5.03)
[2020-01-19 12:57] LABS: Alanine Aminotransferase 94 units/L (7-56); Albumin 3.5 g/dL (3.9-5); BUN/Creatinine Ratio 18; Blood Urea Nitrogen 21 mg/dL (7-17); Calcium 9.1 mg/dL (8.4-10.2); Hematocrit 49.4 % (30.3-42.9); Hemolysis Index 84; Red Cell Distribution Width 20.1 % (13.2-15.2)
--- NOTE | 2020-01-19 12:58 | Emergency Department Report ---
ED Shortness of Breath HPI - General Chief Complaint: Dyspnea/Respdistress Stated Complaint: SOB Time Seen by Provider: 01/19/20 11:43 Source: patient Mode of arrival: Wheelchair Limitations: No Limitations - History of Present Illness Initial Comments: 34-year-old female with a past medical history of CHF, plus sleep apnea, cocaine abuse, O2 dependence, and medication noncompliance presents to the hospital with complaints of shortness of breath and generalized body aches. No fever reported.. Complains of cough productive of yellow sputum and leg edema. Patient has been noncompliant with her 2 L home oxygen use since hospital discharge in October because her machine is malfunctioning. Patient also has been noncompliant with all her medications including metformin and Lasix for the last 2 weeks. She also continues to abuse cocaine with last use 1 week ago. sat 92% on 2 L o2 - Related Data Previous Rx's Medication Instructions Recorded Last Taken Type Aspirin [Aspirin BABY CHEW TAB] 81 mg PO QDAY #30 tab.chew 10/30/19 Unknown Rx AtorvaSTATin [Lipitor] 20 mg PO QHS #30 tablet 10/30/19 Unknown Rx Furosemide [Lasix TAB] 40 mg PO QDAY #30 tablet 10/30/19 Unknown Rx carvediloL [Coreg] 6.25 mg PO BID #60 tablet 10/30/19 Unknown Rx lisinopriL [Zestril TAB] 5 mg PO QDAY #30 tablet 10/30/19 Unknown Rx Allergies Allergy/AdvReac Type Severity Reaction Status Date / Time No Known Allergies Allergy Unverified 10/26/19 08:25 ED Review of Systems ROS: Stated complaint: SOB Other details as noted in HPI Comment: All other systems reviewed and negative ED Past Medical Hx - Past Medical History Previous Medical History?: Yes Hx Hypertension: Yes Hx Congestive Heart Failure: Yes Hx Diabetes: Yes Hx COPD: Yes Additional medical history: CELLULITIS - Social History Smoking Status: Current Some Day Smoker Substance Use Type: Alcohol, Cocaine, Marijuana - Medications Home Medications: Home Medications Medication Instructions Recorded Confirmed Last Taken Type Aspirin [Aspirin BABY CHEW TAB] 81 mg PO QDAY #30 tab.chew 10/30/19 Unknown Rx AtorvaSTATin [Lipitor] 20 mg PO QHS #30 tablet 10/30/19 Unknown Rx Furosemide [Lasix TAB] 40 mg PO QDAY #30 tablet 10/30/19 Unknown Rx carvediloL [Coreg] 6.25 mg PO BID #60 tablet 10/30/19 Unknown Rx lisinopriL [Zestril TAB] 5 mg PO QDAY #30 tablet 10/30/19 Unknown Rx ED Physical Exam - General Limitations: No Limitations - Other Other exam information: General: No acute distress Head: Atraumatic Eyes: normal appearance ENT: Moist mucous membranes Neck: Normal appearance, no midline tenderness Chest: Mild diminished breath sounds bilaterally without wheezing CV: Regular rate and rhythm Abdomen: Soft, normal bowel sounds, nontender, nondistended, no rebound or guarding Back: Normal inspection Extremity: Bilateral leg pitting edema with distal erythema Neuro: Alert O x 3, no facial asymmetry, speech clear, no gross motor sensory deficit Psych: Appropriate behavior Skin: No rash ED Course Vital Signs 01/19/20 01/19/20 01/19/20 11:48 11:50 11:56 Temperature 98.1 F Pulse Rate 111 H 109 H Respiratory 18 15 20 Rate Blood Pressure Blood Pressure 161/113 [Left] O2 Sat by Pulse 92 93 92 Oximetry 01/19/20 01/19/20 01/19/20 12:01 12:10 12:21 Temperature Pulse Rate 109 H 109 H 110 H Respiratory 20 22 22 Rate Blood Pressure 174/112 174/112 197/130 Blood Pressure [Left] O2 Sat by Pulse 88 87 88 Oximetry 01/19/20 01/19/20 01/19/20 12:31 12:41 14:40 Temperature Pulse Rate 113 H 109 H 106 H Respiratory 23 23 21 Rate Blood Pressure 174/112 174/112 156/114 Blood Pressure [Left] O2 Sat by Pulse 85 83 L 95 Oximetry ED Medical Decision Making - Lab Data Result diagrams: 01/19/20 12:09 01/19/20 12:09 Lab Results 01/19/20 01/19/20 01/19/20 Range/Units 12:09 12:09 12:09 WBC 8.5 (4.5-11.0) K/mm3 RBC 5.98 H (3.65-5.03) M/mm3 Hgb 15.0 H (10.1-14.3) gm/dl Hct 49.4 H (30.3-42.9) % MCV 83 (79-97) fl MCH 25 L (28-32) pg MCHC 30 (30-34) % RDW 20.1 H (13.2-15.2) % Plt Count 197 (140-440) K/mm3 Lymph % (Auto) 13.4 (13.4-35.0) % [place] % (Auto) 13.8 H (0.0-7.3) % Eos % (Auto) 0.2 (0.0-4.3) % Baso % (Auto) 0.6 (0.0-1.8) % Lymph # 1.1 L (1.2-5.4) K/mm3 [place] # 1.2 H (0.0-0.8) K/mm3 Eos # 0.0 (0.0-0.4) K/mm3 Baso # 0.1 (0.0-0.1) K/mm3 Seg Neutrophils % 72.0 H (40.0-70.0) % Seg Neutrophils # 6.1 (1.8-7.7) K/mm3 PT 15.1 H (12.2-14.9) Sec. INR 1.17 H (0.87-1.13) APTT 29.4 (24.2-36.6) Sec. D-Dimer 1393.48 H (0-234) ng/mlDDU ABG pH (7.350-7.450) pH Units ABG pCO2 mm Hg ABG pO2 (80.0-90.0) mm Hg ABG HCO3 (20.0-26.0) mmol/L ABG O2 Saturation (95.0-99.0) % ABG O2 Content (0.0-44) ABG Base Excess (-2.0-3.0) mmol/L ABG Hemoglobin (12.0-16.0) gm/dl ABG Carboxyhemoglobin (0.0-5.0) % ABG Methemoglobin (0.0-1.5) % Oxyhemoglobin (95.0-99.0) % FiO2 % Sodium 135 L (137-145) mmol/L Potassium 4.7 (3.6-5.0) mmol/L Chloride 89.9 L (98-107) mmol/L Carbon Dioxide 24 (22-30) mmol/L Anion Gap 26 mmol/L BUN 21 H (7-17) mg/dL Creatinine 1.2 (0.7-1.2) mg/dL Estimated GFR > 60 ml/min BUN/Creatinine Ratio 18 % Glucose 141 H (65-100) mg/dL POC Glucose (70-105) Calcium 9.1 (8.4-10.2) mg/dL Magnesium 1.70 (1.7-2.3) mg/dL Total Bilirubin 3.30 H (0.1-1.2) mg/dL AST 156 H (5-40) units/L ALT 94 H (7-56) units/L Alkaline Phosphatase 175 H (35-129) units/L Troponin T < 0.010 (0.00-0.029) ng/mL NT-Pro-B Natriuret Pep (0-450) pg/mL Total Protein 8.0 (6.3-8.2) g/dL Albumin 3.5 L (3.9-5) g/dL Albumin/Globulin Ratio 0.8 % HCG, Qual (Negative) 01/19/20 01/19/20 01/19/20 Range/Units 12:09 12:09 12:09 WBC (4.5-11.0) K/mm3 RBC (3.65-5.03) M/mm3 Hgb (10.1-14.3) gm/dl Hct (30.3-42.9) % MCV (79-97) fl MCH (28-32) pg MCHC (30-34) % RDW (13.2-15.2) % Plt Count (140-440) K/mm3 Lymph % (Auto) (13.4-35.0) % [place] % (Auto) (0.0-7.3) % Eos % (Auto) (0.0-4.3) % Baso % (Auto) (0.0-1.8) % Lymph # (1.2-5.4) K/mm3 [place] # (0.0-0.8) K/mm3 Eos # (0.0-0.4) K/mm3 Baso # (0.0-0.1) K/mm3 Seg Neutrophils % (40.0-70.0) % Seg Neutrophils # (1.8-7.7) K/mm3 PT (12.2-14.9) Sec. INR (0.87-1.13) APTT (24.2-36.6) Sec. D-Dimer (0-234) ng/mlDDU ABG pH (7.350-7.450) pH Units ABG pCO2 mm Hg ABG pO2 (80.0-90.0) mm Hg ABG HCO3 (20.0-26.0) mmol/L ABG O2 Saturation (95.0-99.0) % ABG O2 Content (0.0-44) ABG Base Excess (-2.0-3.0) mmol/L ABG Hemoglobin (12.0-16.0) gm/dl ABG Carboxyhemoglobin (0.0-5.0) % ABG Methemoglobin (0.0-1.5) % Oxyhemoglobin (95.0-99.0) % FiO2 % Sodium (137-145) mmol/L Potassium (3.6-5.0) mmol/L Chloride (98-107) mmol/L Carbon Dioxide (22-30) mmol/L Anion Gap mmol/L BUN (7-17) mg/dL Creatinine (0.7-1.2) mg/dL Estimated GFR ml/min BUN/Creatinine Ratio % Glucose (65-100) mg/dL POC Glucose 143 H (70-105) Calcium (8.4-10.2) mg/dL Magnesium (1.7-2.3) mg/dL Total Bilirubin (0.1-1.2) mg/dL AST (5-40) units/L ALT (7-56) units/L Alkaline Phosphatase (35-129) units/L Troponin T (0.00-0.029) ng/mL NT-Pro-B Natriuret Pep 1974 H (0-450) pg/mL Total Protein (6.3-8.2) g/dL Albumin (3.9-5) g/dL Albumin/Globulin Ratio % HCG, Qual Negative (Negative) 01/19/20 Range/Units 13:55 WBC (4.5-11.0) K/mm3 RBC (3.65-5.03) M/mm3 Hgb (10.1-14.3) gm/dl Hct (30.3-42.9) % MCV (79-97) fl MCH (28-32) pg MCHC (30-34) % RDW (13.2-15.2) % Plt Count (140-440) K/mm3 Lymph % (Auto) (13.4-35.0) % [place] % (Auto) (0.0-7.3) % Eos % (Auto) (0.0-4.3) % Baso % (Auto) (0.0-1.8) % Lymph # (1.2-5.4) K/mm3 [place] # (0.0-0.8) K/mm3 Eos # (0.0-0.4) K/mm3 Baso # (0.0-0.1) K/mm3 Seg Neutrophils % (40.0-70.0) % Seg Neutrophils # (1.8-7.7) K/mm3 PT (12.2-14.9) Sec. INR (0.87-1.13) APTT (24.2-36.6) Sec. D-Dimer (0-234) ng/mlDDU ABG pH 7.278 L (7.350-7.450) pH Units ABG pCO2 71.8 mm Hg ABG pO2 48.2 L (80.0-90.0) mm Hg ABG HCO3 32.9 H (20.0-26.0) mmol/L ABG O2 Saturation 80.5 L (95.0-99.0) % ABG O2 Content 15.2 (0.0-44) ABG Base Excess 3.6 H (-2.0-3.0) mmol/L ABG Hemoglobin 14.7 (12.0-16.0) gm/dl ABG Carboxyhemoglobin 8.1 H (0.0-5.0) % ABG Methemoglobin 0.8 (0.0-1.5) % Oxyhemoglobin 73.4 L (95.0-99.0) % FiO2 21 % Sodium (137-145) mmol/L Potassium (3.6-5.0) mmol/L Chloride (98-107) mmol/L Carbon Dioxide (22-30) mmol/L Anion Gap mmol/L BUN (7-17) mg/dL Creatinine (0.7-1.2) mg/dL Estimated GFR ml/min BUN/Creatinine Ratio % Glucose (65-100) mg/dL POC Glucose (70-105) Calcium (8.4-10.2) mg/dL Magnesium (1.7-2.3) mg/dL Total Bilirubin (0.1-1.2) mg/dL AST (5-40) units/L ALT (7-56) units/L Alkaline Phosphatase (35-129) units/L Troponin T (0.00-0.029) ng/mL NT-Pro-B Natriuret Pep (0-450) pg/mL Total Protein (6.3-8.2) g/dL Albumin (3.9-5) g/dL Albumin/Globulin Ratio % HCG, Qual (Negative) - EKG Data -: EKG Interpreted by Pr EKG shows normal: sinus rhythm, ST-T waves (no stemi) Rate: tachycardia (108) - Radiology Data Radiology results: report reviewed CHEST 1 VIEW 01/19/2020 11:39 AM INDICATION / CLINICAL INFORMATION: Dyspnea. CO MPARISON: Chest x-ray on 10/26/2019. FINDINGS: SUPPORT DEVICES: None. HEART / MEDIASTINUM: Stable mild cardiomegaly. LUNGS / PLEURA: No significant pulmonary or pleural abnormality. No pneumothorax. ADDITIONAL FINDINGS: No significant additional findings. IMPRESSION: 1. No acute findings. Stable mild cardiomegaly. CTA CHEST WITH CONTRAST INDICATION : MAIN: elevated ddimer, sob 100 ML OMNI 350 PT WEIGHED 375LBS. TECHNIQUE: Axial imaging performed through the chest, with contrast bolus timing set to maximize opacification of the pulmonary arteries. 3-plane MIP reformatted images were obtained. All CT scans at this location are performed using CT dose reduction for ALARA by means of automated exposure control. 100 mL of intravenous contrast administered. Consent was obtained prior to the administration of contrast. COMPARISON: A same-day chest x-ray FINDINGS: Bolus: Contrast bolus timing is adequate. PTE: No filling defect is present to suggest PTE. Mediastinum: The heart and pulmonary veins are enlarged. Normal aorta. No pathologic mediastinal adenopathy. Lungs: Lungs are clear. Upper abdomen: Limited imaging of the upper abdomen demonstrates enlargement of the hepatic veins. Bones: No suspicious bone lesions. IMPRESSION: 1. Negative for PTE. 2. Cardiomegaly and pulmonary venous hypertension. 3. No pneumonia. - Medical Decision Making Patient's ABG show significant hypoxia performed on room air. Patient has been noncompliant with her oxygen since November. Patient also has suspected sleep apnea. ABG also revealed CO2 retention with mild respiratory acidosis. Patient placed on BiPAP in the ED. CTA negative for pulmonary embolism, infiltrate, or pulmonary edema. Positive pulmonary hypertension noted. Suspect the patient has diastolic heart failure with lower extremity edema secondary to medication noncompliance. Patient also continues to abuse cocaine. Initial EKG without acute ischemia and troponin negative without any chest pain reported in the ED pt refusing to wear bipap in ed placed on nasal cannula o2 - Differential Diagnosis CHF, med noncompliance, MS, pneumonia Critical Care Time: No Critical care attestation.: If time is entered above; I have spent that time in minutes in the direct care of this critically ill patient, excluding procedure time. ED Disposition Clinical Impression: Respiratory acidosis, Leg edema, Pulmonary hypertension, Cocaine abuse, Noncompliance with medication regimen, HTN (hypertension), Obesity, Hypoxia, O2 dependent Disposition: -09 OP ADMIT IP TO THIS HOSP Is pt being admited?: Yes Condition: Stable Time of Disposition: 14:53
[2020-01-19 13:00] LABS: INR 1.17 (0.87-1.13)
[2020-01-19 13:01] LABS: Partial Thromboplastin Time 29.4 Sec. (24.2-36.6)
[2020-01-19 14:01] LABS: ABG Base Excess 3.6 mmol/L (-2.0-3.0); ABG HCO3 32.9 mmol/L (20.0-26.0); ABG Methemoglobin 0.8 % (0.0-1.5); ABG Oxygen Saturation 80.5 % (95.0-99.0); ABG PCO2 71.8 mm Hg; ABG PH 7.278 pH Units (7.350-7.450); ABG PO2 48.2 mm Hg (80.0-90.0)
--- NOTE | 2020-01-19 14:47 | Cat Scan Report ---
CTA CHEST WITH CONTRAST INDICATION : MAIN: elevated ddimer, sob 100 ML OMNI 350 PT WEIGHED 375LBS. TECHNIQUE: Axial imaging performed through the chest, with contrast bolus timing set to maximize opa cification of the pulmonary arteries. 3-plane MIP reformatted images were obtained. All CT scans at this location are performed using CT dose reduction for ALARA by means of automated exposure control. 100 mL of intravenous contrast administered. Consent was obtained prior to the administration of cont rast. COMPARISON: A same-day chest x-ray FINDINGS: Bolus: Contrast bolus timing is adequate. PTE: No filling defect is present to suggest PTE. Mediastinum: The heart and pulmonary veins are enlarged. Normal aorta. No pathologic mediastinal ad enopathy. Lungs: Lungs are clear. Upper abdomen: Limited imaging of the upper abdomen demonstrates enlargement of the hepatic veins. Bones: No suspicious bone lesions. IMPRESSION: 1. Negative for PTE. 2. Cardiomegaly and pulmonary venous hypertension. 3. No pneumonia. Signer Name: Rodney Cotter MD Signed: 01/19/2020 2:43 PM Workstation Name: [id number]
--- NOTE | 2020-01-19 15:03 | History and Physical Report ---
History of Present Illness Chief complaint: I need help with my breathing History of present illness: 34 YO Female with Cocaine Dependence, Nicotine Dependence, COPD noncompliant with home oxygen, DM, Pulmonary Hypertension, Medication Noncompliance presents to ED for evaluation. Patient states that she has experienced shortness of breath over the past 1 week with persistent symptoms over the same timeframe. Patient reports cough productive of yellow sputum as well as worsening lower extremity edema. Patient also acknowledges noncompliance with home oxygen, noncompliant with medication, dietary noncompliance, as well as noncompliance with outpatient follow-up. Patient transported to [facility] via private vehicle for further evaluation and care. Patient seen and evaluated in the emergency department and found to have acute on chronic hypoxemic respiratory failure with a pulse oximetry of 76% on room air suspected secondary to noncompliance with outpatient supplemental oxygen and continued nicotine and cocaine ingestion. Patient also found to have pulmonary hypertension, accelerated hypertension, elevated liver function tests. Patient initially placed on supplemental oxygen without significant improvement in pulse oximetry. Patient subsequently placed on noninvasive positive pressure ventilation with mild improvement in pulse oximetry. Patient admitted to [facility] due to high risk for pulmonary deco mpensation. Patient denies fever, chills, chest pain, palpitations, prolonged travel/immobility, individual/family history of DVT/PE/bleeding/blood clotting disorders, known ill contacts. Prior admission on 10/26/2019 reviewed. All medication listed at time of admission has been reconciled. Advanced care planning conducted in the emergency department. Past History Past Medical History: COPD, hypertension, other (See HPI) Past Surgical History: No surgical history, Other (Reviewed) Social history: single, smoking Family history: diabetes, hypertension Medications and Allergies Allergies Allergy/AdvReac Type Severity Reaction Status Date / Time No Known Allergies Allergy Unverified 10/26/19 08:25 Home Medications Medication Instructions Recorded Confirmed Last Taken Type Aspirin [Aspirin BABY CHEW TAB] 81 mg PO QDAY #30 tab.chew 10/30/19 Unknown Rx AtorvaSTATin [Lipitor] 20 mg PO QHS #30 tablet 10/30/19 Unknown Rx Furosemide [Lasix TAB] 40 mg PO QDAY #30 tablet 10/30/19 Unknown Rx carvediloL [Coreg] 6.25 mg PO BID #60 tablet 10/30/19 Unknown Rx lisinopriL [Zestril TAB] 5 mg PO QDAY #30 tablet 10/30/19 Unknown Rx Review of Systems Constitutional: no weight loss, no weight gain, no fever, no chills Ears, nose, mouth and throat: no ear pain, no ear discharge, no tinnitis, no decreased hearing, no nose pain Breasts: no change in shape, no swelling, no mass Cardiovascular: no chest pain, no orthopnea, no palpitations Respiratory: shortness of breath, no congestion, no pleurisy, no pain, no pain on inspiration Gastrointestinal: no abdominal pain, no nausea, no vomiting, no diarrhea, no constipation Genitourinary Female: no pelvic pain, no flank pain, no menorrhagia, no dysuria, no urinary frequency, no urgency Rectal: no pain, no incontinence, no bleeding Musculoskeletal: no neck stiffness, no neck pain, no shooting arm pain, no arm numbness/tingling, no low back pain, no shooting leg pain Integumentary: no rash, no pruritis, no redness, no sores, no wounds Neurological: no transient paralysis, no paralysis, no weakness, no parathesias, no numbness, no tingling, no seizures Psychiatric: no anxiety, no change in sleep habits, no sleep disturbances, no hypersomnia, no change in appetite, no change in libido, no suicidal ideation Endocrine: no cold intolerance, no heat intolerance, no polyphagia, no excessive thirst, no polydipsia, no polyuria, no excessive sweating Hematologic/Lymphatic: no easy bruising, no easy bleeding, no lymphadenopathy, no lymphedema Allergic/Immunologic: no urticaria, no allergic rhinitis, no persistent infections, no anaphylaxis Exam - Constitutional Vitals: Temp Pulse Resp BP Pulse Ox 98.1 F 106 H 21 156/114 95 01/19/20 11:50 01/19/20 14:40 01/19/20 14:40 01/19/20 14:40 01/19/20 14:40 General appearance: Present: mild distress, obese - EENT Eyes: Present: PERRL ENT: hearing intact, clear oral mucosa, poor dentition - Neck Neck: Present: supple, normal ROM - Respiratory Respiratory effort: labored, pursed lips, accessory muscle use, stridor Respiratory: bilateral: diminished, rhonchi - Cardiovascular Heart Sounds: Present: S1 & S2. Absent: rub, click - Extremities Extremities: pulses symmetrical, No edema Peripheral Pulses: within normal limits - Abdominal General gastrointestinal: Present: soft, non-tender, non-distended, normal bowel sounds Female genitourinary: Present: normal - Integumentary Integumentary: Present: clear, warm, dry - Musculoskeletal Musculoskeletal: generalized weakness - Psychiatric Psychiatric: appropriate mood/affect, intact judgment & insight - Neurologic Neurologic: CNII-XII intact, moves all extremities, no gait normal Results - Labs CBC & Chem 7: 01/19/20 12:09 01/19/20 12:09 Labs: Abnormal lab results 01/19/20 01/19/20 01/19/20 Range/Units 12:09 12:09 12:09 RBC 5.98 H (3.65-5.03) M/mm3 Hgb 15.0 H (10.1-14.3) gm/dl Hct 49.4 H (30.3-42.9) % MCH 25 L (28-32) pg RDW 20.1 H (13.2-15.2) % [place] % (Auto) 13.8 H (0.0-7.3) % Lymph # 1.1 L (1.2-5.4) K/mm3 [place] # 1.2 H (0.0-0.8) K/mm3 Seg Neutrophils % 72.0 H (40.0-70.0) % PT 15.1 H (12.2-14.9) Sec. INR 1.17 H (0.87-1.13) D-Dimer 1393.48 H (0-234) ng/mlDDU ABG pH (7.350-7.450) pH Units ABG pO2 (80.0-90.0) mm Hg ABG HCO3 (20.0-26.0) mmol/L ABG O2 Saturation (95.0-99.0) % ABG Base Excess (-2.0-3.0) mmol/L ABG Carboxyhemoglobin (0.0-5.0) % Oxyhemoglobin (95.0-99.0) % Sodium 135 L (137-145) mmol/L Chloride 89.9 L (98-107) mmol/L BUN 21 H (7-17) mg/dL Glucose 141 H (65-100) mg/dL POC Glucose (70-105) Total Bilirubin 3.30 H (0.1-1.2) mg/dL AST 156 H (5-40) units/L ALT 94 H (7-56) units/L Alkaline Phosphatase 175 H (35-129) units/L NT-Pro-B Natriuret Pep (0-450) pg/mL Albumin 3.5 L (3.9-5) g/dL 01/19/20 01/19/20 01/19/20 Range/Units 12:09 12:09 13:55 RBC (3.65-5.03) M/mm3 Hgb (10.1-14.3) gm/dl Hct (30.3-42.9) % MCH (28-32) pg RDW (13.2-15.2) % [place] % (Auto) (0.0-7.3) % Lymph # (1.2-5.4) K/mm3 [place] # (0.0-0.8) K/mm3 Seg Neutrophils % (40.0-70.0) % PT (12.2-14.9) Sec. INR (0.87-1.13) D-Dimer (0-234) ng/mlDDU ABG pH 7.278 L (7.350-7.450) pH Units ABG pO2 48.2 L (80.0-90.0) mm Hg ABG HCO3 32.9 H (20.0-26.0) mmol/L ABG O2 Saturation 80.5 L (95.0-99.0) % ABG Base Excess 3.6 H (-2.0-3.0) mmol/L ABG Carboxyhemoglobin 8.1 H (0.0-5.0) % Oxyhemoglobin 73.4 L (95.0-99.0) % Sodium (137-145) mmol/L Chloride (98-107) mmol/L BUN (7-17) mg/dL Glucose (65-100) mg/dL POC Glucose 143 H (70-105) Total Bilirubin (0.1-1.2) mg/dL AST (5-40) units/L ALT (7-56) units/L Alkaline Phosphatase (35-129) units/L NT-Pro-B Natriuret Pep 1974 H (0-450) pg/mL Albumin (3.9-5) g/dL Assessment and Plan - Patient Problems (1) Respiratory failure Current Visit: No Status: Acute Qualifiers: Chronicity: acute Respiratory failure complication: hypoxia and hypercapnia Qualified Code(s): J96.01 - Acute respiratory failure with hypoxia; J96.02 - Acute respiratory failure with hypercapnia Plan to address problem: Supplemental oxygen, nebulizer therapy, chest x-ray, pulse oximetry, noninvasive positive pressure ventilation, pulmonary toilet. (2) Accelerated hypertension Current Visit: Yes Status: Acute Plan to address problem: Monitor blood pressure every shift, continue medical management, supportive care. Continue prehospital antihypertensive therapy. (3) Obesity hypoventilation syndrome Current Visit: Yes Status: Acute Plan to address problem: Supplemental oxygen, nebulizer therapy, pulse oximetry, outpatient sleep study to evaluate for sleep apnea, outpatient bariatric surgery follow-up. Balanced diet, increase physical activity at discharge. (4) Cocaine abuse Current Visit: Yes Status: Acute Plan to address problem: Behavior change counseling, +15 minutes. (5) Noncompliance with medication regimen Current Visit: Yes Status: Acute Plan to address problem: Behavior change counseling, +15 minutes, patient knowledges understanding of risk of worsening disease and premature if she continues with medication and dietary as well as outpatient medical follow-up noncompliance, as well as supplemental oxygen compliance. (6) Pulmonary hypertension Current Visit: Yes Status: Acute Plan to address problem: Supportive care, supplemental oxygen, patient counseled regarding noncompliance with submental oxygen. (7) DVT prophylaxis Current Visit: Yes Status: Acute Plan to address problem: SCD to bilateral lower extremities while in bed, patient is ambulatory. (8) Advance care planning Current Visit: Yes Status: Acute Plan to address problem: Patient is full code, patient found to have poor prognosis. Patient counseled regarding polysubstance abuse, and noncompliance with supplemental oxygen, noncompliance with medication and noncompliance with outpatient follow-up with medical care. Patient informed that continued behavior will result in worsening disease and eventual premature . Patient knowledges understanding instructions. Patient reports that she will try to be more compliant in the future. +30 minutes.
[2020-01-19] MEDS ORDERED: methylPREDNISolone Sod Succinate 40 MG/1 ML INJ ONE ×2 (15:46→22:37)
[2020-01-19] MEDS: methylPREDNISolone Sod Succinate 40 MG/1 ML INJ IV SCH ×2 (15:49→22:36)
[2020-01-19] MEDS ORDERED: hydrALAZINE 20 MG/1 ML INJ IV PRN (18:55)
[2020-01-19] MEDS ORDERED: LISINOPRIL 5 MG TAB PO SCH (18:55)
[2020-01-19] MEDS ORDERED: hydrALAZINE 20 MG/1 ML INJ ONE (21:48)
[2020-01-19] MEDS ORDERED: ACETAMINOPHEN 325 MG TAB PO ONE (22:49)
[2020-01-19] MEDS ORDERED: ACETAMINOPHEN 325 MG TAB ONE (22:52)
[2020-01-19] MEDS ORDERED: hydrALAZINE 20 MG/1 ML INJ IV ONE (23:47)
[2020-01-20 01:17] LABS: Hepatitis B Surface Antigen Non-Reactive (Negative); Hepatitis C Virus Antibody Non-Reactive (NonReactive)
[2020-01-20] MEDS: hydrALAZINE 20 MG/1 ML INJ IV PRN ×4 (04:37→21:07)
[2020-01-20 05:48] LABS: Mean Corpuscular HGB Conc 30 % (30-34); Mean Corpuscular Volume 83 fl (79-97); Platelet Count 191 K/mm3 (140-440); Red Blood Count 5.87 M/mm3 (3.65-5.03)
[2020-01-20 05:49] LABS: Hematocrit 48.9 % (30.3-42.9); Hemoglobin 14.8 gm/dl (10.1-14.3); Red Cell Distribution Width 20.5 % (13.2-15.2)
[2020-01-20 06:11] LABS: Alanine Aminotransferase 87 units/L (7-56); Albumin 3.5 g/dL (3.9-5); BUN/Creatinine Ratio 22; Blood Urea Nitrogen 22 mg/dL (7-17); Calcium 9.4 mg/dL (8.4-10.2); Hemolysis Index 2
[2020-01-20 06:54] LABS: Anisocytosis 1+; Band Neutrophils # (Manual) 0.1 K/mm3; Basophils % (Manual) 0 % (0.0-1.8); Eosinophils % (Manual) 0 % (0.0-4.3); Hypochromasia 1+; Monocytes % (Manual) 0 % (0.0-7.3); Total Cells Counted 100
[2020-01-20 06:55] LABS: Platelet Estimate Consistent w Auto
[2020-01-20] MEDS ORDERED: LISINOPRIL 5 MG TAB PO SCH (10:00)
--- NOTE | 2020-01-20 13:56 | Progress Note ---
Assessment and Plan (1) Respiratory failure Current Visit: No Status: Acute Qualifiers: Chronicity: acute Respiratory failure complication: hypoxia and hypercapnia Qualified Code(s): J96.01 - Acute respiratory failure with hypoxia; J96.02 - Acute respiratory failure with hypercapnia Plan to address problem: Supplemental oxygen, nebulizer therapy, chest x-ray, pulse oximetry, noninvasive positive pressure ventilation, pulmonary toilet. (2) Accelerated hypertension Current Visit: Yes Status: Acute Plan to address problem: Monitor blood pressure every shift, continue medical management, supportive care. Continue prehospital antihypertensive therapy. (3) Obesity hypoventilation syndrome Current Visit: Yes Status: Acute Plan to address problem: Supplemental oxygen, nebulizer therapy, pulse oximetry, outpatient sleep study to evaluate for sleep apnea, outpatient bariatric surgery follow-up. Balanced diet, increase physical activity at discharge. (4) Cocaine abuse Current Visit: Yes Status: Acute Plan to address problem: Behavior change counseling, +15 minutes. (5) Noncompliance with medication regimen Current Visit: Yes Status: Acute Plan to address problem: Behavior change counseling, +15 minutes, patient knowledges understanding of risk of worsening disease and premature if she continues with medication and dietary as well as outpatient medical follow-up noncompliance, as well as supplemental oxygen compliance. (6) Pulmonary hypertension Current Visit: Yes Status: Acute Plan to address problem: Supportive care, supplemental oxygen, patient counseled regarding noncompliance with submental oxygen. (7) DVT prophylaxis Current Visit: Yes Status: Acute Plan to address problem: SCD to bilateral lower extremities while in bed, patient is ambulatory. (8) Advance care planning Current Visit: Yes Status: Acute Plan to address problem: Patient is full code, patient found to have poor prognosis. Patient counseled regarding polysubstance abuse, and noncompliance with supplemental oxygen, noncompliance with medication and noncompliance with outpatient follow-up with medical care. Patient informed that continued behavior will result in worsening disease and eventual premature . Patient knowledges understanding instructions. Patient reports that she will try to be more compliant in the future. +30 minutes. Subjective Date of service: 01/20/20 Objective - Constitutional Vitals: Vital Signs - 12hr 01/20/20 01/20/20 01/20/20 02:00 02:11 02:21 Temperature Pulse Rate 121 H 117 H 115 H Pulse Rate [ From Monitor] Respiratory 22 21 21 Rate Blood Pressure 198/117 198/117 186/121 O2 Sat by Pulse 94 87 88 Oximetry 01/20/20 01/20/20 01/20/20 02:30 02:41 02:51 Temperature Pulse Rate 119 H 117 H 121 H Pulse Rate [ From Monitor] Respiratory 22 23 29 H Rate Blood Pressure 179/113 179/113 198/117 O2 Sat by Pulse 89 89 88 Oximetry 01/20/20 01/20/20 01/20/20 03:00 03:11 03:21 Temperature Pulse Rate 115 H 118 H 115 H Pulse Rate [ From Monitor] Respiratory 20 21 23 Rate Blood Pressure 193/118 193/118 193/118 O2 Sat by Pulse 86 92 93 Oximetry 01/20/20 01/20/20 01/20/20 03:30 03:41 03:51 Temperature Pulse Rate 115 H 116 H 116 H Pulse Rate [ From Monitor] Respiratory 26 H 17 20 Rate Blood Pressure 194/122 194/122 194/122 O2 Sat by Pulse 93 95 93 Oximetry 01/20/20 01/20/20 01/20/20 04:00 04:11 04:21 Temperature Pulse Rate 115 H 119 H 114 H Pulse Rate [ 116 H From Monitor] Respiratory 21 21 21 Rate Blood Pressure 179/109 179/109 194/122 O2 Sat by Pulse 94 96 91 Oximetry 01/20/20 01/20/20 01/20/20 04:30 04:37 04:40 Temperature 97.4 F L Pulse Rate 114 H 113 H 115 H Pulse Rate [ From Monitor] Respiratory 17 19 Rate Blood Pressure 202/119 202/119 202/119 O2 Sat by Pulse 94 94 Oximetry 01/20/20 01/20/20 01/20/20 04:50 05:00 05:10 Temperature Pulse Rate 116 H 118 H 110 H Pulse Rate [ From Monitor] Respiratory 18 18 22 Rate Blood Pressure 170/114 170/114 O2 Sat by Pulse 89 87 78 L Oximetry 01/20/20 01/20/20 01/20/20 05:20 05:30 05:40 Temperature Pulse Rate 116 H 119 H 100 H Pulse Rate [ From Monitor] Respiratory 11 L 17 26 H Rate Blood Pressure 170/114 177/118 177/118 O2 Sat by Pulse 87 91 84 Oximetry 01/20/20 01/20/20 01/20/20 05:50 06:00 06:10 Temperature Pulse Rate 119 H 108 H 112 H Pulse Rate [ From Monitor] Respiratory 17 13 20 Rate Blood Pressure 177/118 193/111 193/111 O2 Sat by Pulse 75 L 92 93 Oximetry 01/20/20 01/20/20 01/20/20 06:20 06:30 06:40 Temperature Pulse Rate 116 H 116 H 114 H Pulse Rate [ From Monitor] Respiratory 20 26 H 21 Rate Blood Pressure 193/111 195/113 177/118 O2 Sat by Pulse 94 93 93 Oximetry 01/20/20 01/20/20 01/20/20 06:50 07:00 07:10 Temperature Pulse Rate 116 H 115 H 115 H Pulse Rate [ From Monitor] Respiratory 20 21 15 Rate Blood Pressure 177/118 186/107 211/114 O2 Sat by Pulse 93 93 89 Oximetry 01/20/20 01/20/20 01/20/20 07:20 07:30 07:40 Temperature Pulse Rate 108 H 117 H 117 H Pulse Rate [ From Monitor] Respiratory 20 20 23 Rate Blood Pressure 211/114 187/108 187/108 O2 Sat by Pulse 91 92 94 Oximetry 01/20/20 01/20/20 01/20/20 07:50 08:00 08:10 Temperature 97.9 F Pulse Rate 118 H 112 H 114 H Pulse Rate [ From Monitor] Respiratory 20 17 24 Rate Blood Pressure 187/108 178/113 178/113 O2 Sat by Pulse 94 96 92 Oximetry 01/20/20 01/20/20 01/20/20 08:20 11:01 12:00 Temperature 97.7 F Pulse Rate 111 H 110 H Pulse Rate [ From Monitor] Respiratory 19 Rate Blood Pressure 178/113 188/119 O2 Sat by Pulse 94 Oximetry 01/20/20 12:53 Temperature Pulse Rate 110 H Pulse Rate [ From Monitor] Respiratory 23 Rate Blood Pressure O2 Sat by Pulse 95 Oximetry General appearance: Present: no acute distress, well-nourished - EENT Eyes: PERRL, EOM intact ENT: hearing intact, clear oral mucosa Ears: bilateral: normal - Neck Neck: supple, normal ROM - Respiratory Respiratory effort: normal Respiratory: bilateral: CTA - Breasts Breasts: normal - Cardiovascular Rhythm: regular Heart Sounds: Present: S1 & S2. Absent: gallop, rub Extremities: pulses intact, No edema, normal color, Full ROM - Gastrointestinal General gastrointestinal: Present: soft, non-tender, non-distended, normal bowel sounds - Genitourinary Female genitourinary: normal - Integumentary Integumentary: clear, warm, dry - Musculoskeletal Musculoskeletal: 1, strength equal bilaterally - Neurologic Neurologic: moves all extremities - Psychiatric Psychiatric: memory intact, appropriate mood/affect, intact judgment & insight - Labs CBC & Chem 7: 01/21/20 04:56 01/21/20 04:56 Labs: Abnormal lab results 01/19/20 01/20/20 01/20/20 Range/Units 13:55 04:39 04:39 RBC 5.87 H (3.65-5.03) M/mm3 Hgb 14.8 H (10.1-14.3) gm/dl Hct 48.9 H (30.3-42.9) % MCH 25 L (28-32) pg RDW 20.5 H (13.2-15.2) % Seg Neuts % (Manual) 94.0 H (40.0-70.0) % Lymphocytes % (Manual) 5.0 L (13.4-35.0) % Nucleated RBC % 1.0 H (0.0-0.9) % Lymphocytes # (Manual) 0.3 L (1.2-5.4) K/mm3 ABG pH 7.278 L (7.350-7.450) pH Units ABG pO2 48.2 L (80.0-90.0) mm Hg ABG HCO3 32.9 H (20.0-26.0) mmol/L ABG O2 Saturation 80.5 L (95.0-99.0) % ABG Base Excess 3.6 H (-2.0-3.0) mmol/L ABG Carboxyhemoglobin 8.1 H (0.0-5.0) % Oxyhemoglobin 73.4 L (95.0-99.0) % Sodium 136 L (137-145) mmol/L Chloride 92.5 L (98-107) mmol/L BUN 22 H (7-17) mg/dL Glucose 252 H (65-100) mg/dL Total Bilirubin 2.40 H (0.1-1.2) mg/dL AST 95 H (5-40) units/L ALT 87 H (7-56) units/L Alkaline Phosphatase 192 H (35-129) units/L Total Protein 8.5 H (6.3-8.2) g/dL Albumin 3.5 L (3.9-5) g/dL
[2020-01-20] MEDS: methylPREDNISolone Sod Succinate 40 MG/1 ML INJ IV SCH ×2 (14:13→21:08)
[2020-01-20] MEDS: FUROSEMIDE 40 MG TAB PO SCH (14:13)
[2020-01-20] MEDS: ASPIRIN 81 MG TAB CHEW PO SCH (14:13)
[2020-01-20] MEDS ORDERED: VALSARTAN 160MG TAB PO ONE (17:00)
[2020-01-20] MEDS: LORazepam 2 MG/ML VIAL IV PRN (21:07)
[2020-01-20 23:02] LABS: ABG Base Excess 3.1 mmol/L (-2.0-3.0); ABG HCO3 33.7 mmol/L (20.0-26.0); ABG Methemoglobin 0.8 % (0.0-1.5); ABG Oxygen Saturation 74.2 % (95.0-99.0); ABG PCO2 81.9 mm Hg; ABG PH 7.232 pH Units (7.350-7.450); ABG PO2 45.7 mm Hg (80.0-90.0)
[2020-01-21 06:20] LABS: Basophils % (Auto) 0.2 % (0.0-1.8); Lymphocytes # (Auto) 0.4 K/mm3 (1.2-5.4); Lymphocytes % (Auto) 4.7 % (13.4-35.0); Mean Corpuscular HGB Conc 30 % (30-34); Mean Corpuscular Volume 84 fl (79-97); Monocytes # (Auto) 0.4 K/mm3 (0.0-0.8); Monocytes % (Auto) 5.5 % (0.0-7.3); Platelet Count 170 K/mm3 (140-440); Red Blood Count 5.54 M/mm3 (3.65-5.03)
[2020-01-21 06:22] LABS: Hematocrit 46.6 % (30.3-42.9)
[2020-01-21 06:43] LABS: Alanine Aminotransferase 69 units/L (7-56); Albumin 3.4 g/dL (3.9-5); BUN/Creatinine Ratio 25; Blood Urea Nitrogen 25 mg/dL (7-17); Calcium 9.5 mg/dL (8.4-10.2); Hemolysis Index 0
[2020-01-21] MEDS: VALSARTAN 160MG TAB PO SCH ×2 (10:32→21:02)
[2020-01-21] MEDS: ASPIRIN 81 MG TAB CHEW PO SCH (10:32)
[2020-01-21] MEDS: methylPREDNISolone Sod Succinate 40 MG/1 ML INJ IV SCH ×2 (10:32→21:01)
[2020-01-21] MEDS: FUROSEMIDE 40 MG TAB PO SCH (10:33)
[2020-01-21] MEDS: hydrALAZINE 20 MG/1 ML INJ IV PRN (14:19)
[2020-01-21] MEDS: LORazepam 2 MG/ML VIAL IV PRN (21:01)
[2020-01-22] MEDS: LORazepam 2 MG/ML VIAL IV PRN (03:47)
[2020-01-22] MEDS: hydrALAZINE 20 MG/1 ML INJ IV PRN ×2 (06:29→15:30)
--- NOTE | 2020-01-22 09:20 | Progress Note ---
Assessment and Plan (1) Respiratory failure Current Visit: No Status: Acute Qualifiers: Chronicity: acute Respiratory failure complication: hypoxia and hypercapnia Qualified Code(s): J96.01 - Acute respiratory failure with hypoxia; J96.02 - Acute respiratory failure with hypercapnia Plan to address problem: Supplemental oxygen, nebulizer therapy, chest x-ray, pulse oximetry, noninvasive positive pressure ventilation, pulmonary toilet. Patient still tachypneic and on BiPAP Continue IMCU (2) Accelerated hypertension Current Visit: Yes Status: Acute Plan to address problem: Monitor blood pressure every shift, continue medical management, supportive care. Continue prehospital antihypertensive therapy. (3) Obesity hypoventilation syndrome Current Visit: Yes Status: Acute Plan to address problem: Supplemental oxygen, nebulizer therapy, pulse oximetry, outpatient sleep study to evaluate for sleep apnea, outpatient bariatric surgery follow-up. Balanced diet, increase physical activity at discharge. (4) Cocaine abuse Current Visit: Yes Status: Acute Plan to address problem: Consult (5) Noncompliance with medication regimen Current Visit: Yes Status: Acute Plan to address problem: Behavior change counseling, +15 minutes, patient knowledges understanding of risk of worsening disease and premature if she continues with medication and dietary as well as outpatient medical follow-up noncompliance, as well as supplemental oxygen compliance. (6) Pulmonary hypertension Current Visit: Yes Status: Acute Plan to address problem: Supportive care, supplemental oxygen, patient counseled regarding noncompliance with submental oxygen. (7) DVT prophylaxis Current Visit: Yes Status: Acute Plan to address problem: SCD to bilateral lower extremities while in bed, patient is ambulatory. Subjective Date of service: 01/21/20 Principal diagnosis: Acute respiratory failure Interval history: 34 YO Female with Cocaine Dependence, Nicotine Dependence, COPD noncompliant with home oxygen, DM, Pulmonary Hypertension, Medication Noncompliance presents to ED for evaluation. Patient states that she has experienced shortness of breath over the past 1 week with persistent symptoms over the same timeframe. Patient reports cough productive of yellow sputum as well as worsening lower extremity edema. Patient also acknowledges noncompliance with home oxygen, noncompliant with medication, dietary noncompliance, as well as noncompliance with outpatient follow-up. Patient transported to [facility] via private vehicle for further evaluation and care. Patient seen and evaluated in the emergency department and found to have acute on chronic hypoxemic respiratory failure with a pulse oximetry of 76% on room air suspected secondary to noncompliance with outpatient supplemental oxygen and continued nicotine and cocaine ingestion. Patient also found to have pulmonary hypertension, accelerated hypertension, elevated liver function tests. Patient initially placed on supplemental oxygen without significant improvement in pulse oximetry. Patient subsequently placed on noninvasive positive pressure ventilation with mild improvement in pulse oximetry. Patient admitted to [facility] due to high risk for pulmonary decompensation. Patient denies fever, chills, chest pain, palpitations, prolonged travel/immobility, individual/family history of DVT/PE/bleeding/blood clotting disorders, known ill contacts. Prior admission on 10/26/2019 reviewed. All medication listed at time of admission has been reconciled. Advanced care planning conducted in the emergency department. Objective - Constitutional Vitals: Vital Signs - 12hr 01/21/20 01/21/20 01/22/20 22:01 23:57 00:00 Temperature 98.8 F Pulse Rate 121 H 113 H 109 H Pulse Rate [ 115 H From Monitor] Respiratory 20 14 21 Rate Blood Pressure 146/110 139/89 141/96 O2 Sat by Pulse 96 99 98 Oximetry 01/22/20 01/22/20 01/22/20 01:00 02:00 04:00 Temperature 98.0 F Pulse Rate 124 H 106 H 112 H Pulse Rate [ 110 H From Monitor] Respiratory 23 14 15 Rate Blood Pressure 146/110 159/102 155/97 O2 Sat by Pulse 97 94 94 Oximetry 01/22/20 01/22/20 01/22/20 04:52 06:00 08:00 Temperature Pulse Rate 132 H 111 H 117 H Pulse Rate [ 110 H From Monitor] Respiratory 21 25 H 20 Rate Blood Pressure 148/109 160/128 O2 Sat by Pulse 93 96 97 Oximetry 01/22/20 08:18 Temperature Pulse Rate 120 H Pulse Rate [ From Monitor] Respiratory 23 Rate Blood Pressure 153/112 O2 Sat by Pulse 94 Oximetry General appearance: Present: mild distress, well-nourished - EENT Eyes: PERRL, EOM intact ENT: hearing intact, clear oral mucosa Ears: bilateral: normal - Neck Neck: supple, normal ROM - Respiratory Respiratory effort: normal Respiratory: bilateral: CTA, rales, rhonchi - Breasts Breasts: normal - Cardiovascular Rhythm: regular Heart Sounds: Present: S1 & S2. Absent: gallop, rub Extremities: no ischemia, pulses intact, No edema, normal color, Full ROM - Gastrointestinal General gastrointestinal: Present: soft, non-tender, non-distended, normal bowel sounds - Genitourinary Female genitourinary: normal - Integumentary Integumentary: clear, warm, dry - Musculoskeletal Musculoskeletal: 1, strength equal bilaterally - Neurologic Neurologic: moves all extremities - Psychiatric Psychiatric: memory intact, appropriate mood/affect, intact judgment & insight - Labs CBC & Chem 7: 01/21/20 04:56 01/21/20 04:56
[2020-01-22] MEDS: VALSARTAN 160MG TAB PO SCH (09:45)
[2020-01-22] MEDS: methylPREDNISolone Sod Succinate 40 MG/1 ML INJ IV SCH (09:45)
[2020-01-22] MEDS: FUROSEMIDE 40 MG TAB PO SCH (09:45)
[2020-01-22] MEDS: INSULIN LISPRO 100 UNIT/ML SUB-Q SCH ×3 (09:48→17:56)
[2020-01-22] MEDS: ASPIRIN 81 MG TAB CHEW PO SCH (09:48)
[2020-01-23 00:59] VITALS: BP 179/111
== END 2020-01-22 22:35 | disposition left against medical advice (07) | DRG 189 ==
LOC: ED 11:36 → IMCU 15:11
PROVIDERS: ADMIT Internal Medicine; ATTEND Internal Medicine
PROC: 4A033R1 Measurement of Arterial Saturation, Peripheral, Percutaneous Approach (ICD-10-PCS; principal; 2020-01-19)
PROC: 5A09357 Assistance with Respiratory Ventilation, Less than 24 Consecutive Hours, Continuous Positive Airway Pressure (ICD-10-PCS; 2020-01-19)
PROC: 5A09357 Assistance with Respiratory Ventilation, Less than 24 Consecutive Hours, Continuous Positive Airway Pressure (ICD-10-PCS; 2020-01-20)
PROC: 5A09357 Assistance with Respiratory Ventilation, Less than 24 Consecutive Hours, Continuous Positive Airway Pressure (ICD-10-PCS; 2020-01-21)
PROC: 5A09357 Assistance with Respiratory Ventilation, Less than 24 Consecutive Hours, Continuous Positive Airway Pressure (ICD-10-PCS; 2020-01-22)
DX: J96.21 Acute and chronic respiratory failure with hypoxia (principal); J96.02 Acute respiratory failure with hypercapnia; Z68.43 Body mass index [BMI] 50.0-59.9, adult; E66.2 Morbid (severe) obesity with alveolar hypoventilation; I27.20 Pulmonary hypertension, unspecified; I50.9 Heart failure, unspecified; I11.0 Hypertensive heart disease with heart failure; F14.10 Cocaine abuse, uncomplicated; R74.8 Abnormal levels of other serum enzymes; Z99.81 Dependence on supplemental oxygen; Z91.14 Patient's other noncompliance with medication regimen; J44.9 Chronic obstructive pulmonary disease, unspecified; E11.9 Type 2 diabetes mellitus without complications; F17.210 Nicotine dependence, cigarettes, uncomplicated; E87.2 Acidosis; Z82.49 Family history of ischemic heart disease and other diseases of the circulatory system; Z83.3 Family history of diabetes mellitus
CPT/HCPCS: 36415; 36600; 71045; 71275; 80053; 80074; 82803; 82962; 83735; 83880; 84484; 84703; 85007; 85025; 85379; 85610; 85730; 87116; 93005; 93010; 94660; 94760; G0378; A9270-GY; J0360; J2060; J2920; Q9967